=== PATIENT | female | born 1965 | race Hispanic/Latino ===

== ENCOUNTER 2018-04-04 11:32 | Emergency (ER) | payer BC, OTHER ==
[2018-04-04] MEDS ORDERED: NA CHLORIDE 0.9% 1,000 ML ONE (13:14)
[2018-04-04] MEDS ORDERED: ONDANSETRON 4 MG/2 ML VIAL ONE (13:14)
[2018-04-04 13:19] LABS: Absolute Lymphocytes (CBC) 2.7 K/uL (0.7-4.9); Absolute Monocytes 0.6 K/uL (0.1-1.3); Basophils % 0.5 % (0-1.3); Eosinophils % 2.1 % (0-4.4); Hematocrit 40.1 % (36.0-45.0); Lymphocytes % 36.2 % (15.3-44.8); MCH 28.1 pg (27.0-35.0); MCV 84.6 fL (80-100); Monocytes % 7.4 % (3.3-12.3); RBC Red Blood Cell Count 4.74 M/uL (3.86-4.86)
[2018-04-04 13:35] LABS: ALT/SGPT 20 U/L (12-78); AST/SGOT 13 U/L (15-37); Albumin 3.6 g/dL (3.4-5.0); Alkaline Phosphatase 87 U/L (45-117); BUN Blood Urea Nitrogen 12 mg/dL (7-18); Bicarbonate 30 mmol/L (21-32); Bilirubin Direct < 0.1 mg/dL (0-0.2); Bilirubin Total 0.3 mg/dL (0.2-1.0); Glucose Level 89 mg/dL (74-106); Lipase 141 U/L (73-393); Potassium 4.3 mmol/L (3.5-5.1); Protein, Total 7.3 g/dL (6.4-8.2); Sodium Level 140 mmol/L (136-145)
[2018-04-04 13:38] LABS: Urine Amorphous Sediment 1+ /HPF (NONE SEEN); Urine Bacteria 20-50 /HPF (<20); Urine Culture Reflex Order REFLEXED
[2018-04-04 13:39] LABS: Urine Trichomonas PRESENT (NONE SEEN)
[2018-04-04 14:19] LABS: Urine Blood NEGATIVE (NEG); Urine Glucose NEGATIVE (NEG); Urine Protein TRACE (NEG); Urine Specific Gravity 1.025 (1.005-1.030); Urine pH 6.5 (5.0-7.0)
--- NOTE | 2018-04-04 14:59 | RAD REPORT ---
EXAM DESCRIPTION: CT - Abdomen Pelvis W Contrast - 04/04/2018 2:34 pm CLINICAL HISTORY: Abdominal pain, diarrhea, prior cholecystectomy COMPARISON: CT December 2010. TECHNIQUE: Biphasic, helical CT imaging of the abdomen and pelvis was performed following 100 ml non -ionic IV contrast. Oral contrast was given. All CT scans are performed using dose optimization technique as appropriate and may include automated exposure control or mA/KV adjustment according to patient size. FINDINGS: No suspicious findings in the lung bases. The liver, spleen, and pancreas show no suspicious findings. Cholecystectomy clips are present. No bi liary tree dilatation. Back maximal Symmetric renal function is seen with no hydronephrosis or suspicious renal mass. No pyelonephritis o r acute renal parenchymal process. No adrenal abnormality. Urinary bladder is contracted limiting det ail. Bladder calculus is not seen. No uterine or ovarian suspicious finding. Fallopian tube occlusive device is in place Patient probably has a 2 centimeter right ovarian or paraovarian remnant cyst. Th is may be slightly larger than in 2011. No left ovarian finding. No gastric dilatation or gastric wall thickening. No acute small bowel finding. Appendix is normal. M ild left-sided diverticulosis present without mass, diverticulitis or other acute colon process. No free air, free fluid or inflammatory stranding. No hernia, mass or bulky lymphadenopathy. No suspicious bony findings. IMPRESSION: Left-sided diverticulosis without diverticulitis. No acute GI process identifiable. A 2 centimeter right ovarian cyst is evident probably enlarged slightly from 2011 imaging. Given the patient's age, followup nonemergent pelvic sonography could be performed to monitor this finding.
--- NOTE | 2018-04-04 15:29 | EDPHYS ---
Physician Documentation [facility] Name: Magui Cotton Age: 52 yrs Sex: Female : 1965 Arrival Date: 04/04/2018 Time: 11:41 Bed 13 Private MD: ED Physician Forest Almodovar HPI: 04/04 12:52 This 52 yrs old Female presents to ER via Wheelchair with complaints of rn Abdominal Pain. 12:52 The patient presents with abdominal pain in the lower abdomen. Onset: The rn symptoms/episode began/occurred yesterday. The symptoms do not radiate. Associated signs and symptoms: Pertinent positives: diarrhea, nausea, Pertinent negatives: blood in stools, fever. The symptoms are described as achy, crampy. Modifying factors: The symptoms are alleviated by nothing, the symptoms are aggravated by nothing. Severity of pain: At its worst the pain was moderate in the emergency department the pain has improved. The patient has not experienced similar symptoms in the past. The patient has not recently seen a physician. 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 - Social history:: Smoking status: Patient/guardian denies using tobacco. - Ebola Screening: : Patient negative for fever greater than or equal to 101.5 degrees Fahrenheit, and additional compatible Ebola Virus Disease symptoms Patient denies exposure to infectious person Patient denies travel to an Ebola-affected area in the 21 days before illness onset No symptoms or risks identified at this time. - Family history:: not pertinent. - Hospitalizations: : No recent hospitalization is reported. ROS: 12:52 Constitutional: Negative for fever, chills, and weight loss, Eyes: Negative for injury, rn pain, redness, and discharge, Neck: Negative for injury, pain, and swelling, Cardiovascular: Negative for chest pain, palpitations, and edema, Respiratory: Negative for shortness of breath, cough, wheezing, and pleuritic chest pain, Abdomen/GI: + lower abd pain, nausea, diarrhea MS/Extremity: Negative for injury and deformity, Skin: Negative for injury, rash, and discoloration, Neuro: Negative for headache, numbness, tingling, and seizure. Exam: 12:52 Constitutional: This is a well developed, well nourished patient who is awake, alert, rn slow walking to bed Head/Face: Normocephalic, atraumatic. ENT: dry MM Cardiovascular: Regular rate and rhythm with a normal S1 and S2. No gallops, murmurs, or rubs. Normal PMI, no JVD. No pulse deficits. Respiratory: Lungs have equal breath sounds bilaterally, clear to auscultation and percussion. No rales, rhonchi or wheezes noted. No increased work of breathing, no retractions or nasal flaring. Abdomen/GI: soft, mild mid abd tenderness, no rebound/masses MS/ Extremity: Pulses equal, no cyanosis. Neurovascular intact. Full, normal range of motion. Equal circumference. Neuro: Awake and alert, GCS 15, oriented to person, place, time, and situation. Cranial nerves II-XII grossly intact. Motor strength 5/5 in all extremities. Sensory grossly intact. Cerebellar exam normal. Normal gait. Vital Signs: 11:48 BP 114 / 65; Pulse 101; Resp 20; Temp 98.0; Pulse Ox 99% on R/A; Weight 108.41 kg; aj Height 5 ft. 4 in. (162.56 cm); 13:04 BP 122 / 85; Pulse 55; Resp 19; Pulse Ox 99% on R/A; Pain 8/10; rb1 14:00 BP 115 / 70; Pulse 53; Resp 20; Pulse Ox 98% on R/A; rb1 15:00 BP 119 / 68; Pulse 57; Resp 20; Pulse Ox 99% on R/A; rb1 11:48 Body Mass Index 41.02 (108.41 kg, 162.56 cm) aj MDM: 12:43 Patient medically screened. rn 15:26 Differential diagnosis: diverticulitis, gastritis, non-specific abd pain, urinary tract rn infection, enteritis, dehydration. Data reviewed: vital signs, nurses notes, lab test result(s), radiologic studies, CT scan, and as a result, I will discharge patient. Counseling: I had a detailed discussion with the patient and/or guardian regarding: the historical points, exam findings, and any diagnostic results supporting the discharge/admit diagnosis, lab results, radiology results, the need for outpatient follow up, to return to the emergency department if symptoms worsen or persist or if there are any questions or concerns that arise at home. Response to treatment: the patient's symptoms have markedly improved after treatment, and as a result, I will discharge patient. Special discussion: I discussed with the patient/guardian in detail that at this point there is no indication for admission to the hospital. It is understood, however, that if the symptoms persist or worsen the patient needs to return immediately for re-evaluation. Based on the history and exam findings, there is no indication for further emergent testing or inpatient evaluation. I discussed with the patient/guardian the need to see the OB Gyne specialist for further evaluation of the symptoms. I discussed with the patient/guardian the need to see the primary care provider for further evaluation of the symptoms. 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 04/04 12:52 Order name: Basic Metabolic Panel; Complete Time: 13:40 04/04 12:52 Order name: CBC with Diff; Complete Time: 13:40 04/04 12:52 Order name: Hepatic Function; Complete Time: 13:40 04/04 12:52 Order name: Lipase; Complete Time: 13:40 04/04 12:52 Order name: Urine Microscopic Only; Complete Time: 13:40 04/04 13:40 Order name: Urine Culture [facility] 04/04 12:52 Order name: IV Saline Lock; Complete Time: 13:20 04/04 12:52 Order name: Labs collected and sent; Complete Time: 13:20 04/04 12:52 Order name: Urine Dipstick-Ancillary (obtain specimen); Complete Time: 13:20 04/04 12:52 Order name: CT Abd/Pelvis - W/Contrast; Complete Time: 15:08 rn 04/04 14:10 Order name: Urine Dipstick--Ancillary (enter results); Complete Time: 15:08 bd Administered Medications: 13:12 Drug: NS 0.9% 1000 ml Route: IV; Rate: 1000 ml; Site: right antecubital; rb1 14:32 Follow up: IV Status: Completed infusion rb1 13:12 Drug: Zofran 4 mg Route: IVP; Site: right antecubital; rb1 13:30 Follow up: Response: No adverse reaction; Nausea is decreased rb1 Disposition: 04/04/18 15:29 Discharged to Home. Impression: Diarrhea, unspecified, Gastroenteritis, Urinary tract infection, site not specified, Dehydration, Trichomoniasis. - Condition is Stable. - Discharge Instructions: Dehydration, Adult, Trichomoniasis, Urinary Tract Infection, Adult, Viral Gastroenteritis, Adult. - Prescriptions for Zofran ODT 4 mg Oral tablet,disintegrating - place 1 tablet by TRANSLINGUAL route every 8-10 hours As needed; 20 tablet. Macrobid 100 mg Oral Capsule - take 1 capsule by ORAL route every 12 hours for 10 days; 20 capsule. - Medication Reconciliation Form, Thank You Letter, Antibiotic Education, Prescription Opioid Use, Work release form form. - Follow up: Private Physician; When: As needed; Reason: Recheck today's complaints, Re-evaluation by your physician. - Problem is new. - Symptoms have improved. Signatures: Dispatcher [employer] EDIvana Paul RN RN aj Nieto, Roman, MD MD rn Barber, Rebecca, RN RN rb1 Corrections: (The following items were deleted from the chart) 15:54 15:29 04/04/2018 15:29 Discharged to Home. Impression: Diarrhea, unspecified; rb1 Gastroenteritis; Urinary tract infection, site not specified; Dehydration; Trichomoniasis. Condition is Stable. Forms are Medication Reconciliation Form, Thank You Letter, Antibiotic Education, Prescription Opioid Use. Follow up: Private Physician; When: As needed; Reason: Recheck today's complaints, Re-evaluation by your physician. Problem is new. Symptoms have improved. rn
--- NOTE | 2018-04-04 15:29 | ER ---
Nurse's Notes [facility] Name: Magui Cotton Age: 52 yrs Sex: Female : 1965 Arrival Date: 04/04/2018 Time: 11:41 Bed 13 Private MD: Diagnosis: Diarrhea, unspecified;Gastroenteritis;Urinary tract infection, site not specified;Dehydration;Trichomoniasis Presentation: 04/04 11:47 Presenting complaint: Patient states: Diarrhea since yesterday. Transition of care: aj patient was not received from another setting of care. Onset of symptoms was April 03, 2018. Risk Assessment: Do you want to hurt yourself or someone else? Patient reports no desire to harm self or others. Initial Sepsis Screen: Does the patient meet any 2 criteria? No. Patient's initial sepsis screen is negative. Does the patient have a suspected source of infection? No. Patient's initial sepsis screen is negative. Care prior to arrival: None. 11:47 Method Of Arrival: Wheelchair 11:47 Acuity: THERESE 3 aj Triage Assessment: 11:48 General: Appears in no apparent distress. comfortable, Behavior is calm, cooperative, aj appropriate for age. Pain: Denies pain. Neuro: Level of Consciousness is awake, alert, obeys commands, Oriented to person, place, time, situation, Appropriate for age. Respiratory: Airway is patent Respiratory effort is even, unlabored, Respiratory pattern is regular, symmetrical. GI: Abdomen is non-distended, obese, Reports diarrhea. Derm: Skin is intact, is healthy with good turgor, Skin is pink, warm \\T\\ dry. normal. 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 - Social history:: Smoking status: Patient/guardian denies using tobacco. - Ebola Screening: : Patient negative for fever greater than or equal to 101.5 degrees Fahrenheit, and additional compatible Ebola Virus Disease symptoms Patient denies exposure to infectious person Patient denies travel to an Ebola-affected area in the 21 days before illness onset No symptoms or risks identified at this time. - Family history:: not pertinent. - Hospitalizations: : No recent hospitalization is reported. Screenin:50 Abuse screen: Denies threats or abuse. Nutritional screening: No deficits noted. rb1 Tuberculosis screening: No symptoms or risk factors identified. Fall Risk None identified. Assessment: 12:50 General: Appears uncomfortable, obese, Behavior is calm, cooperative, Pt. stated, "I rb1 didn't take my temperature, but I felt like I had a fever.". Pain: Complains of pain in suprapubic area, right lower quadrant and left lower quadrant Pain currently is 8 out of 10 on a pain scale. Pain began 1 day ago. Neuro: Level of Consciousness is awake, alert, obeys commands, Oriented to person, place, time, situation. Cardiovascular: Capillary refill < 3 seconds is brisk in bilateral fingers. Respiratory: Airway is patent Respiratory effort is even, unlabored, Respiratory pattern is regular, symmetrical. GI: Bowel sounds present X 4 quads. Abd is soft Abd is non tender Reports diarrhea. GI: Reports nausea. : No signs and/or symptoms were reported regarding the genitourinary system. Derm: Skin is dry, Skin is normal, Skin temperature is warm. 13:47 Reassessment: Patient appears in no apparent distress at this time. No changes from rb1 previously documented assessment. Family at bedside. 14:18 Reassessment: Pt. went to CT. rb1 15:15 Reassessment: Patient and/or family updated on plan of care and expected duration. Pain rb1 level reassessed. Patient is alert, oriented x 3, equal unlabored respirations, skin warm/dry/pink. Family at bedside. Vital Signs: 11:48 BP 114 / 65; Pulse 101; Resp 20; Temp 98.0; Pulse Ox 99% on R/A; Weight 108.41 kg; aj Height 5 ft. 4 in. (162.56 cm); 13:04 BP 122 / 85; Pulse 55; Resp 19; Pulse Ox 99% on R/A; Pain 8/10; rb1 14:00 BP 115 / 70; Pulse 53; Resp 20; Pulse Ox 98% on R/A; rb1 15:00 BP 119 / 68; Pulse 57; Resp 20; Pulse Ox 99% on R/A; rb1 11:48 Body Mass Index 41.02 (108.41 kg, 162.56 cm) aj ED Course: 11:41 Patient arrived in ED. [id number] 11:48 Triage completed. 11:48 Arm band placed on right wrist. Patient placed in waiting room, Patient notified of wait time. 12:42 Elizabeth Davies, RN is Primary Nurse. rb1 12:43 Forest Almodovar MD is Attending Physician. rn 12:50 Patient has correct armband on for positive identification. Bed in low position. Call rb1 light in reach. Side rails up X 1. Pulse ox on. NIBP on. Warm blanket given. 13:05 Inserted saline lock: 22 gauge in right antecubital area, using aseptic technique. rb1 Blood collected. 14:32 CT completed. Patient tolerated procedure well. Patient moved to CT via wheelchair. Patient moved back from CT. Patient moved back from radiology. 14:34 CT Abd/Pelvis - W/Contrast In Process Unspecified. EDMS 15:53 No provider procedures requiring assistance completed. IV discontinued, intact, rb1 bleeding controlled, No redness/swelling at site. Pressure dressing applied. Administered Medications: 13:12 Drug: NS 0.9% 1000 ml Route: IV; Rate: 1000 ml; Site: right antecubital; rb1 14:32 Follow up: IV Status: Completed infusion rb1 13:12 Drug: Zofran 4 mg Route: IVP; Site: right antecubital; rb1 13:30 Follow up: Response: No adverse reaction; Nausea is decreased rb1 Outcome: 15:29 Discharge ordered by MD. rn 15:53 Discharged to home ambulatory, with family. rb1 15:53 Condition: stable 15:53 Discharge instructions given to patient, Instructed on discharge instructions, follow up and referral plans. medication usage, Demonstrated understanding of instructions, follow-up care, medications, Prescriptions given X 3. 15:54 Patient left the ED. rb1 Signatures: Dispatcher [employer] EDMS Ivana Lion RN RN aj Nieto, Roman, MD MD rn Warren, Shannon Elizabeth Davies, Maximino Mccollum RN jb7
[2018-04-04 16:05] VITALS: TEMP 98
[2018-04-04 16:09] VITALS: BP 119/68; O2SAT 99
== END 2018-04-04 15:54 | disposition home or self-care (01) ==
LOC: ER 11:32
DX: K52.9 Noninfective gastroenteritis and colitis, unspecified (principal); N39.0 Urinary tract infection, site not specified; E86.0 Dehydration; A59.9 Trichomoniasis, unspecified; Z88.8 Allergy status to other drugs, medicaments and biological substances
CPT/HCPCS: 36415; 74177; 80048; 80076; 81003; 81015; 83690; 85025; 87077; 87086; 87088; 87186; 96361; 96374; 99284; J2405; J7030; Q9967

== ENCOUNTER 2018-08-27 15:16 | Emergency (ER) | payer BC ==
--- OUTSIDE RECORDS SUMMARY | 2018-08-27 15:19 | XMS REPORT ---
:1965 Author Organization [employer] Care Team Providers Name Role Phone Dedra Amaro Provider Role Unavailable Allergies, Adverse Reactions, Alerts Substance Reaction Event Type Metronidazole SOB, redness, neck swelling,; this was 10-11 years ago Drug Allergy mustard Lips swell, SOB, and redness Non Drug Allergy Problems Problem Type Condition Code Onset Dates Condition Status Assessment Nausea R11.0 Active Assessment Urinary tract infection without N39.0 Active hematuria, site unspecified Assessment Abdominal pain, unspecified abdominal R10.9 Active location Assessment Elevated BP without diagnosis of R03.0 Active hypertension Assessment Screening for STD (sexually Z11.3 Active transmitted disease) Assessment Follow-up exam Z09 Active Problem Trichomonas infection A59.9 Active Problem Urinary tract infection without N39.0 Active hematuria, site unspecified Problem Nausea R11.0 Active Assessment Trichomonas infection A59.9 Active Problem Elevated BP without diagnosis of R03.0 Active hypertension Problem Abdominal pain, unspecified abdominal R10.9 Active location Medications Medication Code Code Instructions Start End Status Dosage System Date Date Nitrofurantoin [facility] [id number] 100 MG Orally Active 1 capsule Monohyd Macro every 12 hrs with food Ondansetron ND [id number] 4 MG Orally Active 1 tablet every 4 hrs on the tongue and allow to dissolve as needed Results No Known Results Summary Purpose eClinicalWorks Submission
--- OUTSIDE RECORDS SUMMARY | 2018-08-27 15:19 | XMS REPORT ---
:1965 Author Organization [employer] Care Team Providers Name Role Phone Dedra Amaro Provider Role Unavailable Allergies No Known Allergies Problems Problem Type Condition Code Onset Dates Condition Status Problem Trichomonas infection A59.9 Active Problem Urinary tract infection without N39.0 Active hematuria, site unspecified Problem Nausea R11.0 Active Problem Elevated BP without diagnosis of R03.0 Active hypertension Problem Abdominal pain, unspecified abdominal R10.9 Active location Medications No Known Medications Results No Known Results Summary Purpose [employer] Submission
[2018-08-27] MEDS ORDERED: KETOROLAC 30 MG/ML INJ ONE (15:59)
--- NOTE | 2018-08-27 16:40 | RAD REPORT ---
EXAM DESCRIPTION: CT - Stone Protocol - 08/27/2018 4:00 pm CLINICAL HISTORY: Left-sided back pain, left-sided flank pain, prior cholecystectomy COMPARISON: CT imaging March 2018 TECHNIQUE: Axial 5 mm thick images were obtained without oral or IV contrast. The [id number] span s the entirety of the system including uppermost abdomen and lung bases. All CT scans are performed using dose optimization technique as appropriate and may include automated exposure control or mA/KV adjustment according to patient size.Is FINDINGS: No hydronephrosis is present and no obstructing ureteral calculi. No suspicious renal mass es. Isodense masses and pyelonephritis are not excluded on a stone protocol CT scan. No urinary bladd er suspicious finding. No significant adrenal finding. No uterus or ovarian acute finding. Fallopian tube occlusive devices are in place. Imaged portions of the liver, spleen and pancreas show no suspicious findings on non-contrast imaging . Cholecystectomy clips are present. No biliary tree dilatation. No suspicious bowel findings. Left-sided diverticulosis is present without diverticulitis, mass or ot her acute process. No hernia, mass or bulky lymphadenopathy noted. No free air, free fluid or inflammatory stranding. No significant bony abnormality. IMPRESSION: Noncontrast CT abdomen and pelvis shows no significant or suspicious finding. No suspicious change from prior imaging. Isodense masses and pyelonephritis are not excluded on stone protocol technique.
[2018-08-27 16:52] LABS: Urine Blood NEGATIVE (NEG); Urine Glucose NEGATIVE (NEG); Urine Protein NEGATIVE (NEG); Urine Specific Gravity 1.015 (1.005-1.030)
[2018-08-27 16:52] LABS: Urine Bacteria >50 /HPF (<20); Urine Culture Reflex Order REFLEXED; Urine RBC <5 /HPF (NONE SEEN)
[2018-08-27] MEDS ORDERED: CEFTRIAXONE/SWI 1gm 2 GM/20 ML SYR ONE (16:53)
[2018-08-27 16:59] LABS: Absolute Lymphocytes (CBC) 3.5 K/uL (0.7-4.9); Absolute Monocytes 0.7 K/uL (0.1-1.3); Absolute Neutrophil 5.2 K/uL (1.8-8.0); Basophils % 0.5 % (0-1.3); Eosinophils % 1.2 % (0-4.4); Hematocrit 40.5 % (36.0-45.0); Lymphocytes % 36.2 % (15.3-44.8); MCH 27.9 pg (27.0-35.0); MCV 83.1 fL (80-100); MPV 8.7 fL (7.6-11.3); Monocytes % 7.4 % (3.3-12.3); RBC Red Blood Cell Count 4.88 M/uL (3.86-4.86)
[2018-08-27 17:02] LABS: ALT/SGPT 23 U/L (12-78); AST/SGOT 15 U/L (15-37); Albumin 3.7 g/dL (3.4-5.0); Alkaline Phosphatase 95 U/L (45-117); BUN Blood Urea Nitrogen 13 mg/dL (7-18); Bicarbonate 27 mmol/L (21-32); Bilirubin Direct < 0.1 mg/dL (0-0.2); Bilirubin Total 0.2 mg/dL (0.2-1.0); Glucose Level 79 mg/dL (74-106); Lipase 160 U/L (73-393); Protein, Total 7.7 g/dL (6.4-8.2); Sodium Level 139 mmol/L (136-145)
--- NOTE | 2018-08-27 17:16 | EDPHYS ---
Physician Documentation [facility] Name: Magui Cotton Age: 53 yrs Sex: Female : 1965 Arrival Date: 08/27/2018 Time: 15:18 Bed 18 Private MD: ED Physician Brendan Bhatt HPI: 08/27 15:43 This 53 yrs old Female presents to ER via Ambulatory with complaints of Low cp Back Pain. 15:43 The patient presents with pain that is acute, with no known mechanism of injury, and cp tenderness. The symptoms are located in the left low back and left mid back. The pain radiates to the left buttock. Onset: The symptoms/episode began/occurred 4 day(s) ago. 15:43 Associated signs and symptoms: Pertinent negatives: chest pain, constipation, dysuria, cp fever, incontinence, numbness, tingling, urinary retention, vomiting, weakness. 15:43 The problem was sustained from unknown cause. Severity of symptoms: in the emergency cp department the symptoms are unchanged, despite home interventions. 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 - Social history:: Smoking status: Patient/guardian denies using tobacco. - Ebola Screening: : Patient negative for fever greater than or equal to 101.5 degrees Fahrenheit, and additional compatible Ebola Virus Disease symptoms Patient denies exposure to infectious person Patient denies travel to an Ebola-affected area in the 21 days before illness onset No symptoms or risks identified at this time. ROS: 15:50 Constitutional: Negative for body aches, chills, fever, poor PO intake. cp 15:50 Eyes: Negative for injury, pain, redness, and discharge. cp 15:50 ENT: Negative for drainage from ear(s), ear pain, sore throat, difficulty swallowing, difficulty handling secretions. 15:50 Cardiovascular: Negative for chest pain, edema, palpitations. 15:50 Respiratory: Negative for cough, shortness of breath, wheezing. 15:50 Abdomen/GI: Negative for vomiting, diarrhea, constipation, anorexia, black/tarry stool, rectal pain, rectal bleeding, bowel incontinence. 15:50 Back: Positive for pain at rest, pain with movement, of the left low back. 15:50 : Negative for urinary symptoms, bladder incontinence, vaginal bleeding, vaginal discharge. 15:50 MS/extremity: Positive for pain, of the left leg, Negative for injury or acute deformity, decreased range of motion, paresthesias. 15:50 Skin: Negative for cellulitis, rash. 15:50 Neuro: Negative for altered mental status, dizziness, headache, weakness. 15:50 All other systems are negative. Exam: 15:55 Constitutional: The patient appears in no acute distress, alert, awake, cp non-diaphoretic, non-toxic, well developed, well nourished, obese. 15:55 Head/Face: Normocephalic, atraumatic. cp 15:55 Eyes: Periorbital structures: appear normal, Conjunctiva: normal, no exudate, no injection, Sclera: no appreciated abnormality, Lids and lashes: appear normal, bilaterally. 15:55 ENT: External ear(s): are unremarkable, Nose: is normal, Mouth: Lips: moist, Oral mucosa: pink and intact, moist, Posterior pharynx: is normal, airway is patent, no erythema, no exudate. 15:55 Neck: ROM/movement: is normal, is supple, without pain, no range of motions limitations, no nuchal rigidity. 15:55 Chest/axilla: Inspection: normal. 15:55 Cardiovascular: Rate: normal, Rhythm: regular, Edema: is not appreciated. 15:55 Respiratory: the patient does not display signs of respiratory distress, Respirations: normal, no use of accessory muscles, no retractions, no splinting, no tachypnea, Breath sounds: are clear throughout, no decreased breath sounds, no stridor, no wheezing. 15:55 Abdomen/GI: Inspection: obese Bowel sounds: active, all quadrants, Palpation: soft, in all quadrants, mild abdominal tenderness, in the left lower quadrant, rebound tenderness, is not appreciated, voluntary guarding, is not appreciated, involuntary guarding, is not appreciated. 15:55 Back: pain, that is moderate, of the left low back, ROM is painful, CVA tenderness, that is mild, is noted on the left, Straight leg raises: of both lower extremities does not illicit pain. 15:55 Skin: cellulitis, is not appreciated, no rash present. 15:55 Neuro: Orientation: to person, place \T\ time. Mentation: is normal, Motor: moves all fours, strength is normal, Sensation: is normal, Gait: is steady, Deep tendon reflexes are 2+ (normal) in the right patellar, right Achilles, left patellar and left Achilles. Vital Signs: 15:28 BP 120 / 86; Pulse 74; Resp 16 S; Temp 98.2; Pulse Ox 98% on R/A; Weight 108.86 kg; iw Height 5 ft. 3 in. (160.02 cm); Pain 9/10; 16:28 BP 110 / 71; Pulse 68; Resp 18; Pulse Ox 99% on R/A; Pain 7/10; em 17:35 BP 108 / 63; Pulse 67; Resp 16; Pulse Ox 99% on R/A; Pain 4/10; em 15:28 Body Mass Index 42.51 (108.86 kg, 160.02 cm) iw MDM: 15:23 Patient medically screened. cp 16:00 Differential diagnosis: strain, sciatica, Herniated disc UTI, pyelonephritis, kidney cp stone. 17:15 Data reviewed: vital signs, nurses notes, lab test result(s), radiologic studies, CT cp scan. 17:15 Counseling: I had a detailed discussion with the patient and/or guardian regarding: the cp historical points, exam findings, and any diagnostic results supporting the discharge/admit diagnosis, lab results, radiology results, the need for outpatient follow up, a family practitioner, to return to the emergency department if symptoms worsen or persist or if there are any questions or concerns that arise at home. Response to treatment: the patient's symptoms have markedly improved after treatment, and as a result, I will discharge patient. ED course: VSS. Pain improved with meds. Will discharge to home for continued monitoring. 08/27 15:41 Order name: Basic Metabolic Panel cp 08/27 15:41 Order name: CBC with Diff cp 08/27 15:41 Order name: Creatinine for Radiology cp 08/27 15:41 Order name: Hepatic Function cp 08/27 15:41 Order name: Lipase cp 08/27 15:41 Order name: Urine Microscopic Only cp 08/27 16:25 Order name: Urine Dipstick--Ancillary (enter results) eb 08/27 16:52 Order name: Urine Microscopic Only; Complete Time: 17:13 EDMS 08/27 17:13 Interpretation: Normal except: UWBC 5-10; UBACT >50; SQEPI 10-20. cp 08/27 16:53 Order name: Urine Dipstick-Ancillary; Complete Time: 17:13 EDMS 08/27 17:13 Interpretation: Normal except: UESTR TRACE. cp 08/27 16:58 Order name: Creatinine (Radiology Only); Complete Time: 17:13 EDMS 08/27 17:02 Order name: CBC with Automated Diff; Complete Time: 17:13 EDMS 08/27 17:02 Order name: Basic Metabolic Panel; Complete Time: 17:13 EDMS 08/27 17:14 Interpretation: Normal except: CL 108; GFR 88. 08/27 17:02 Order name: Liver (Hepatic) Function; Complete Time: 17:13 EDMS 08/27 17:02 Order name: Lipase; Complete Time: 17:13 EDMS 08/27 15:41 Order name: IV Saline Lock; Complete Time: 16:21 08/27 15:41 Order name: Labs collected and sent; Complete Time: 16:20 08/27 15:41 Order name: Urine Dipstick-Ancillary (obtain specimen); Complete Time: 16:20 08/27 15:42 Order name: CT Stone Protocol 08/27 16:41 Order name: CT; Complete Time: 16:46 EDMS 08/27 16:47 Interpretation: Report reviewed. cp Administered Medications: 16:15 Drug: TORadol 30 mg Route: IVP; Site: left antecubital; iw 16:28 Follow up: Response: No adverse reaction; Pain is decreased em 17:10 Drug: Rocephin - (cefTRIAXone) 2 grams Route: IVPB; Infused Over: 30 mins; Site: right iw antecubital; 17:34 Follow up: Response: No adverse reaction; IV Status: Completed infusion; IV Intake: 20mlem Disposition: 18:50 Co-signature as Attending Physician, Brendan Bhatt MD. Disposition: 08/27/18 17:15 Discharged to Home. Impression: Low back pain, Urinary tract infection, site not specified. - Condition is Stable. - Discharge Instructions: Back Pain, Adult, Urinary Tract Infection, Adult, Back Exercises, [id number]. - Prescriptions for Anaprox DS 550 mg Oral Tablet - take 1 tablet by ORAL route every 12 hours As needed; 20 tablet. Tylenol- Codeine #3 300-30 mg Oral Tablet - take 2 tablets by ORAL route every 6 hours As needed; 15 tablet. Cyclobenzaprine 10 mg Oral Tablet - take 1 tablet by ORAL route every 8 hours As needed; 20 tablet. Bactrim DS 800- 160 mg Oral Tablet - take 1 tablet by ORAL route every 12 hours for 7 days; 14 tablet. - Medication Reconciliation Form, Thank You Letter, Antibiotic Education, Prescription Opioid Use form. - Follow up: Private Physician; When: 2 - 3 days; Reason: Recheck today's complaints. - Problem is new. - Symptoms have improved. 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 [facility] 17:38 17:15 08/27/2018 17:15 Discharged to Home. Impression: Low back pain; Urinary tract em infection, site not specified. Condition is Stable. Forms are Medication Reconciliation Form, Thank You Letter, Antibiotic Education, Prescription Opioid Use. Follow up: Private Physician; When: 2 - 3 days; Reason: Recheck today's complaints. Problem is new. Symptoms have improved. cp
--- NOTE | 2018-08-27 17:16 | ER ---
Nurse's Notes [facility] Name: Magui Cotton Age: 53 yrs Sex: Female : 1965 Arrival Date: 08/27/2018 Time: 15:18 Bed 18 Private MD: Diagnosis: Low back pain;Urinary tract infection, site not specified Presentation: 08/27 15:27 Presenting complaint: Patient states: left low back pain X 4 days, worse today, denies iw injury, denies urinary s/s. Transition of care: patient was not received from another setting of care. Onset of symptoms was August 23, 2018. Risk Assessment: Do you want to hurt yourself or someone else? Patient reports no desire to harm self or others. Initial Sepsis Screen: Does the patient meet any 2 criteria? No. Patient's initial sepsis screen is negative. Does the patient have a suspected source of infection? No. Patient's initial sepsis screen is negative. Care prior to arrival: None. 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 - Social history:: Smoking status: Patient/guardian denies using tobacco. - Ebola Screening: : Patient negative for fever greater than or equal to 101.5 degrees Fahrenheit, and additional compatible Ebola Virus Disease symptoms Patient denies exposure to infectious person Patient denies travel to an Ebola-affected area in the 21 days before illness onset No symptoms or risks identified at this time. Screenin:50 Abuse screen: Denies threats or abuse. Nutritional screening: No deficits noted. em Tuberculosis screening: No symptoms or risk factors identified. Fall Risk None identified. Assessment: 15:50 General: Appears in no apparent distress. uncomfortable, Behavior is calm, cooperative, em Denies fever. Pain: Complains of pain in left lower back and right lower back Pain currently is 9 out of 10 on a pain scale. Neuro: Level of Consciousness is awake, alert, obeys commands, Oriented to person, place, time, situation, Gait is steady. Cardiovascular: Capillary refill < 3 seconds Patient's skin is warm and dry. Respiratory: Airway is patent Respiratory effort is even, unlabored, Respiratory pattern is regular, symmetrical. GI: Abdomen is obese, Patient currently denies nausea, vomiting. : Urine is cloudy, Denies burning with urination, inability to void, pain. EENT: No signs and/or symptoms were reported regarding the EENT system. Derm: Skin is intact, is healthy with good turgor, Skin is pink, warm \T\ dry. Musculoskeletal: Range of motion: intact in all extremities. 16:00 Reassessment: Patient appears in no apparent distress at this time. I agree with above iw assessment by Tello Josue LVN. 16:28 Reassessment: Patient appears in no apparent distress at this time. Patient and/or em family updated on plan of care and expected duration. Pain level reassessed. Patient is alert, oriented x 3, equal unlabored respirations, skin warm/dry/pink. pt states medication is helping Patient states feeling better. 17:34 Reassessment: Patient appears in no apparent distress at this time. Patient and/or em family updated on plan of care and expected duration. Pain level reassessed. Patient is alert, oriented x 3, equal unlabored respirations, skin warm/dry/pink. rates pain 4/10 Patient states feeling better. Vital Signs: 15:28 BP 120 / 86; Pulse 74; Resp 16 S; Temp 98.2; Pulse Ox 98% on R/A; Weight 108.86 kg; iw Height 5 ft. 3 in. (160.02 cm); Pain 9/10; 16:28 BP 110 / 71; Pulse 68; Resp 18; Pulse Ox 99% on R/A; Pain 7/10; em 17:35 BP 108 / 63; Pulse 67; Resp 16; Pulse Ox 99% on R/A; Pain 4/10; em 15:28 Body Mass Index 42.51 (108.86 kg, 160.02 cm) iw ED Course: 15:18 Patient arrived in ED. as 15:22 Jese Sarabia PA is PHCP. cp 15:22 Brendan Bhatt MD is Attending Physician. cp 15:28 Triage completed. iw 15:28 Arm band placed on. iw 15:43 Tello Josue LVN is Primary Nurse. em 15:50 Patient has correct armband on for positive identification. Placed in gown. Bed in low em position. Call light in reach. Adult w/ patient. 15:56 CT completed. Patient moved back from CT. bq 16:10 Initial lab(s) drawn, by me, sent to lab. Inserted saline lock: 20 gauge in right em antecubital area, using aseptic technique. Blood collected. 17:35 No provider procedures requiring assistance completed. IV discontinued, intact, em bleeding controlled, No redness/swelling at site. Pressure dressing applied. Administered Medications: 16:15 Drug: TORadol 30 mg Route: IVP; Site: left antecubital; iw 16:28 Follow up: Response: No adverse reaction; Pain is decreased em 17:10 Drug: Rocephin - (cefTRIAXone) 2 grams Route: IVPB; Infused Over: 30 mins; Site: right iw antecubital; 17:34 Follow up: Response: No adverse reaction; IV Status: Completed infusion; IV Intake: 20mlem Intake: 17:34 IV: 20ml; Total: 20ml. em Outcome: 17:15 Discharge ordered by MD. cp 17:35 Discharged to home ambulatory, with family. em 17:35 Condition: good 17:35 Discharge instructions given to patient, family, Instructed on discharge instructions, follow up and referral plans. no drinking with medication, no driving heavy equipment, medication usage, Demonstrated understanding of instructions, follow-up care, medications, Prescriptions given X 4. 17:38 Patient left the ED. em Addendum: 08/31/2018 07:31 Addendum: Culture Results: Positive urine culture. No further action required. Bacteria h b sensitive to prescribed antibiotic. Signatures: Maureen Kearney bq Tello Josue LVN LVN em Annabelle Mckeon as Donna Browning RN RN iw Jese Sarabia PA PA cp Lyndsey Brunner RN RN Corrections: (The following items were deleted from the chart) 08/27 15:44 15:27 Acuity: THERESE 4 iw iw
[2018-08-27 17:59] VITALS: TEMP 98.2
[2018-08-27 18:01] VITALS: O2SAT 99
[2018-08-27 18:02] VITALS: BP 108/63
== END 2018-08-27 17:38 | disposition home or self-care (01) ==
LOC: ER 15:16
DX: N39.0 Urinary tract infection, site not specified (principal); Z88.8 Allergy status to other drugs, medicaments and biological substances
CPT/HCPCS: 36415; 74176; 76377; 80048; 80076; 81003; 81015; 83690; 85025; 87077; 87086; 87088; 87186; 96365; 96375; 99284; J0696

== ENCOUNTER 2019-02-11 14:11 | Emergency (ER) | payer BC ==
--- OUTSIDE RECORDS SUMMARY | 2019-02-11 14:13 | XMS REPORT ---
:1965 Author Organization e[employer] Care Team Providers Name Role Phone Dedra Amaro Provider Role Unavailable Allergies, Adverse Reactions, Alerts Substance Reaction Event Type Metronidazole SOB, redness, neck swelling,; this was 10-11 years ago Drug Allergy mustard Lips swell, SOB, and redness Non Drug Allergy Problems Problem Type Condition Code Onset Dates Condition Status Assessment Sore throat J02.9 Active Problem Trichomonas infection A59.9 Active Problem Urinary tract infection without N39.0 Active hematuria, site unspecified Problem Nausea R11.0 Active Assessment Left-sided face pain R51 Active Problem Elevated BP without diagnosis of R03.0 Active hypertension Problem Abdominal pain, unspecified abdominal R10.9 Active location Medications Medication Code Code Instructions Start End Status Dosage System Date Date Augmentin [facility] 86423181558 500-125 MG January 23February 02, Active 1 tablet Orally every 12 2019 2019 hrs Ondansetron ND 68431615433 4 MG Orally Active 1 tablet every 4 hrs on the tongue and allow to dissolve as needed Nitrofurantoin ND 80411215454 100 MG Orally Active 1 capsule Monohyd Macro every 12 hrs with food Results Name Result Date Reference Range Unit Abnormality Flag STREP A RAPID ----Result Negative [id number] Summary Purpose eClinicalWorks Submission
--- OUTSIDE RECORDS SUMMARY | 2019-02-11 14:13 | XMS REPORT ---
[...] End Status Dosage System Date Date Nitrofurantoin [facility] 77333335807 100 MG Orally Active 1 capsule Monohyd Macro every 12 hrs with food Ondansetron ND 40327769565 4 MG Orally Active 1 tablet every 4 hrs on the tongue and allow to dissolve as needed Results No Known Results Summary Purpose eClinicalWorks Submission
[2019-02-11] MEDS ORDERED: IBUPROFEN 400 MG TAB ONE (15:30)
[2019-02-11] MEDS ORDERED: HYDROCODONE/APAP 10/325 TAB ONE (15:30)
--- NOTE | 2019-02-11 16:39 | ER ---
Nurse's Notes [facility] Name: Magui Cotton Age: 53 yrs Sex: Female : 1965 Arrival Date: 02/11/2019 Time: 14:14 Bed 27 Private MD: Dedra Amaro Diagnosis: Hemorrhoids Presentation: 02/11 14:23 Presenting complaint: Patient states: MY HEMORRHOIDS ARE BLEEDING. Transition of care: bp patient was not received from another setting of care. Onset of symptoms is unknown. Risk Assessment: Do you want to hurt yourself or someone else? Patient reports no desire to harm self or others. Initial Sepsis Screen: Does the patient meet any 2 criteria? No. Patient's initial sepsis screen is negative. Does the patient have a suspected source of infection? No. Patient's initial sepsis screen is negative. Care prior to arrival: None. 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 - Social history:: Smoking status: Patient/guardian denies using tobacco. - Ebola Screening: : No symptoms or risks identified at this time. Screenin:49 Abuse screen: Denies threats or abuse. Nutritional screening: No deficits noted. tw2 Tuberculosis screening: No symptoms or risk factors identified. Fall Risk None identified. Assessment: 14:51 General: Appears in no apparent distress. uncomfortable, Behavior is calm, cooperative. rv Pain: Complains of pain in rectum. Neuro: Level of Consciousness is awake, alert, obeys commands, Oriented to person, place, time, situation. Cardiovascular: Patient's skin is warm and dry. Respiratory: Airway is patent. GI: Reports hemorrhoids. : No signs and/or symptoms were reported regarding the genitourinary system. EENT: No signs and/or symptoms were reported regarding the EENT system. Derm: Skin is intact. Musculoskeletal: No signs and/or symptoms reported regarding the musculoskeletal system. 16:30 Reassessment: Patient appears in no apparent distress at this time. Patient and/or rv family updated on plan of care and expected duration. Pain level reassessed. Patient is alert, oriented x 3, equal unlabored respirations, skin warm/dry/pink. Patient states feeling better. Patient states symptoms have improved. Vital Signs: 14:24 BP 113 / 63; Pulse 70; Resp 14; Temp 97.2; Pulse Ox 97% ; Weight 109.32 kg; Height 5 bp ft. 3 in. (160.02 cm); 16:04 BP 97 / 62; Pulse 57; Resp 15; Temp 97.9; Pulse Ox 96% ; rv 16:45 BP 95 / 53; Pulse 57; Resp 16; Temp 98.0; Pulse Ox 97% ; lt1 14:24 Body Mass Index 42.69 (109.32 kg, 160.02 cm) bp ED Course: 14:14 Patient arrived in ED. ag5 14:14 Dedra Amaro MD is Private Physician. ag5 14:24 Triage completed. bp 14:24 Arm band placed on. bp 14:49 Bed in low position. Call light in reach. tw2 14:51 Trevor Crowe RN is Primary Nurse. rv 15:02 Pankaj Arellano NP is PHCP. pm1 15:02 Jese Jay MD is Attending Physician. pm1 16:38 Dario Mckeon MD is Referral Physician. pm1 16:56 No provider procedures requiring assistance completed. Patient did not have IV access rv during this emergency room visit. Administered Medications: 15:20 Drug: [place] 10 mg-325 mg 1 tabs Route: PO; rv 16:04 Follow up: Response: Marked relief of symptoms; Pain is decreased rv 15:20 Drug: Ibuprofen 800 mg Route: PO; rv 16:04 Follow up: Response: Marked relief of symptoms; Pain is decreased rv Outcome: 16:38 Discharge ordered by MD. pm1 16:56 Discharged to home ambulatory. rv 16:56 Condition: improved 16:56 Discharge instructions given to patient, Instructed on discharge instructions, follow up and referral plans. medication usage, Demonstrated understanding of instructions, follow-up care, medications, Prescriptions given X 3. 17:06 Patient left the ED. rv Signatures: Pankaj Arellano NP DIAMOND WHEEL EDGER pm1 Shanna Hawk RN RN tw2 Timbo Red RN RN bp Trevor Crowe, RN RN rv Cindy, Leodan ag5 Evelyn Pino 1
--- NOTE | 2019-02-11 16:39 | EDPHYS ---
Physician Documentation [facility] Name: Magui Cotton Age: 53 yrs Sex: Female : 1965 Arrival Date: 02/11/2019 Time: 14:14 Bed 27 Private MD: Dedra Amaro ED Physician Jese Jay HPI: 02/11 15:33 This 53 yrs old Female presents to ER via Ambulatory with complaints of Rectal pm1 Bleeding, Hemorrhoids. 15:33 The patient presents to the emergency department with bleeding from the rectum/anus, pm1 pain in the rectal area, hemorrhoid. Onset: The symptoms/episode began/occurred 3 day(s) ago. Context: the patient has a known history of hemorrhoids. Modifying factors: The symptoms are alleviated by nothing, The symptoms are aggravated by bowel movement, sitting position. Associate signs and symptoms: Pertinent negatives: abdominal pain, constipation, diarrhea, fever. The patient has not experienced similar symptoms in the past. The patient has not recently seen a physician. 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 - Social history:: Smoking status: Patient/guardian denies using tobacco. - Ebola Screening: : No symptoms or risks identified at this time. ROS: 15:33 Constitutional: Negative for fever, chills, and weight loss, Eyes: Negative for injury, pm1 pain, redness, and discharge, ENT: Negative for injury, pain, and discharge, Neck: Negative for injury, pain, and swelling, Cardiovascular: Negative for chest pain, palpitations, and edema, Respiratory: Negative for shortness of breath, cough, wheezing, and pleuritic chest pain. 15:33 Back: Negative for injury and pain, : Negative for injury, bleeding, discharge, and swelling, MS/Extremity: Negative for injury and deformity, Skin: Negative for injury, rash, and discoloration, Neuro: Negative for headache, weakness, numbness, tingling, and seizure. 15:33 Abdomen/GI: Positive for rectal pain, rectal bleeding, Negative for abdominal pain, nausea and vomiting, hematemesis, black/tarry stool. Exam: 15:33 Constitutional: This is a well developed, well nourished patient who is awake, alert, pm1 and in no acute distress. Head/Face: Normocephalic, atraumatic. Eyes: Pupils equal round and reactive to light, extra-ocular motions intact. Lids and lashes normal. Conjunctiva and sclera are non-icteric and not injected. Cornea within normal limits. Periorbital areas with no swelling, redness, or edema. ENT: Nares patent. No nasal discharge, no septal abnormalities noted. Tympanic membranes are normal and external auditory canals are clear. Oropharynx with no redness, swelling, or masses, exudates, or evidence of obstruction, uvula midline. Mucous membranes moist. Neck: Trachea midline, no thyromegaly or masses palpated, and no cervical lymphadenopathy. Supple, full range of motion without nuchal rigidity, or vertebral point tenderness. No Meningismus. Chest/axilla: Normal chest wall appearance and motion. Nontender with no deformity. No lesions are appreciated. Cardiovascular: Regular rate and rhythm with a normal S1 and S2. No gallops, murmurs, or rubs. Normal PMI, no JVD. No pulse deficits. Respiratory: Lungs have equal breath sounds bilaterally, clear to auscultation and percussion. No rales, rhonchi or wheezes noted. No increased work of breathing, no retractions or nasal flaring. 15:33 Back: No spinal tenderness. No costovertebral tenderness. Full range of motion. Skin: Warm, dry with normal turgor. Normal color with no rashes, no lesions, and no evidence of cellulitis. MS/ Extremity: Pulses equal, no cyanosis. Neurovascular intact. Full, normal range of motion. 15:33 Abdomen/GI: Inspection: abdomen appears normal, Bowel sounds: normal, Palpation: abdomen is soft and non-tender, Rectal exam: hemorrhoid(s), external, with associated bleeding, with inflammation, with pain, without thrombosis, [facility] tech. 15:33 Neuro: Orientation: is normal, Motor: is normal, moves all fours, Sensation: is normal, no obvious gross deficits. Vital Signs: 14:24 BP 113 / 63; Pulse 70; Resp 14; Temp 97.2; Pulse Ox 97% ; Weight 109.32 kg; Height 5 bp ft. 3 in. (160.02 cm); 16:04 BP 97 / 62; Pulse 57; Resp 15; Temp 97.9; Pulse Ox 96% ; rv 16:45 BP 95 / 53; Pulse 57; Resp 16; Temp 98.0; Pulse Ox 97% ; lt1 14:24 Body Mass Index 42.69 (109.32 kg, 160.02 cm) bp MDM: 15:03 Patient medically screened. [facility] 15:33 Data reviewed: vital signs. Data interpreted: Pulse oximetry: on room air is 97 %. pm1 Interpretation: normal. 16:37 Counseling: I had a detailed discussion with the patient and/or guardian regarding: the pm1 historical points, exam findings, and any diagnostic results supporting the discharge/admit diagnosis, the need for outpatient follow up, to return to the emergency department if symptoms worsen or persist or if there are any questions or concerns that arise at home. Administered Medications: 15:20 Drug: [place] 10 mg-325 mg 1 tabs Route: PO; rv 16:04 Follow up: Response: Marked relief of symptoms; Pain is decreased rv 15:20 Drug: Ibuprofen 800 mg Route: PO; rv 16:04 Follow up: Response: Marked relief of symptoms; Pain is decreased rv Disposition: 02/12 07:51 Co-signature as Attending Physician, Jese Jay MD I agree with the assessment and [facility] plan of care. Disposition: 02/11/19 16:38 Discharged to Home. Impression: Hemorrhoids. - Condition is Stable. - Discharge Instructions: Hemorrhoids. - Prescriptions for Anusol- HC 2.5 % Rectal Cream - Apply to affected area 1 application by TOPICAL route every 8 hours As needed; 30 gram. Colace 100 mg Oral Tablet - take 1 tablet by ORAL route every 12 hours; 14 tablet. Tylenol- Codeine #3 300-30 mg Oral Tablet - take 2 tablets by ORAL route every 6 hours As needed; 20 tablet. - Medication Reconciliation Form, Thank You Letter, Antibiotic Education, Prescription Opioid Use form. - Follow up: Emergency Department; When: As needed; Reason: Worsening of condition. Follow up: Dario Mckeon MD; When: 2 - 3 days; Reason: Recheck today's complaints, Continuance of care, Re-evaluation by your physician. - Problem is new. - Symptoms have improved. Signatures: Jese Jay MD MD cha Marinas, Patrick, NP CARPENTER'S ASSISTANT pm1 Timbo Red, RN RN bp Trevor Crowe, RN RN rv Corrections: (The following items were deleted from the chart) 02/11 17:06 16:38 02/11/2019 16:38 Discharged to Home. Impression: Hemorrhoids. Condition is rv Stable. Forms are Medication Reconciliation Form, Thank You Letter, Antibiotic Education, Prescription Opioid Use. Follow up: Emergency Department; When: As needed; Reason: Worsening of condition. Follow up: Dario Mckeon; When: 2 - 3 days; Reason: Recheck today's complaints, Continuance of care, Re-evaluation by your physician. Problem is new. Symptoms have improved. pm1
[2019-02-11 17:30] VITALS: BP 95/53; TEMP 98; O2SAT 97
== END 2019-02-11 17:06 | disposition home or self-care (01) ==
LOC: ER 14:11
DX: K64.9 Unspecified hemorrhoids (principal)
CPT/HCPCS: 99283

== ENCOUNTER 2019-02-16 11:04 | Day surgery (SDC) | payer BC ==
[2019-02-16 09:59] LABS: Absolute Lymphocytes (CBC) 2.5 K/uL (0.7-4.9); Absolute Monocytes 0.4 K/uL (0.1-1.3); Absolute Neutrophil 5.4 K/uL (1.8-8.0); Basophils % 0.6 % (0-1.3); Eosinophils % 3.8 % (0-4.4); Hematocrit 41.9 % (36.0-45.0); Lymphocytes % 29.1 % (15.3-44.8); MPV 8.6 fL (7.6-11.3); RBC Red Blood Cell Count 4.98 M/uL (3.86-4.86)
--- NOTE | 2019-02-16 10:00 | RAD REPORT ---
EXAM DESCRIPTION: RAD - Chest Pa And Lat (2 Views) - 02/16/2019 9:51 am CLINICAL HISTORY: preop Chest pain. COMPARISON: CHEST SINGLE VIEW dated 10/25/2012; CHEST SINGLE VIEW dated 12/21/2011 FINDINGS: The lungs are clear. The heart is normal in size. No displaced fractures. IMPRESSION: No acute or concerning finding suspected.
[2019-02-16 10:16] LABS: BUN Blood Urea Nitrogen 13 mg/dL (7-18); Bicarbonate 29 mmol/L (21-32); Glucose Level 92 mg/dL (74-106); Potassium 4.6 mmol/L (3.5-5.1); Sodium Level 144 mmol/L (136-145)
--- OUTSIDE RECORDS SUMMARY | 2019-02-16 11:10 | XMS REPORT ---
[...] End Status Dosage System Date Date Augmentin [facility] [id number] 500-125 MG January 23February 02, Active 1 tablet Orally every 12 2019 2019 hrs Ondansetron ND 13532105494 4 MG Orally Active 1 tablet every 4 hrs on the tongue and allow to dissolve as needed Nitrofurantoin ND 88543755538 100 MG Orally Active 1 capsule Monohyd Macro every 12 hrs with food Results Name Result Date Reference Range Unit Abnormality Flag STREP A RAPID ----Result Negative [id number] Summary Purpose eClinicalWorks Submission
--- OUTSIDE RECORDS SUMMARY | 2019-02-16 11:10 | XMS REPORT ---
[...] Status Dosage System Date Date Nitrofurantoin [facility] [id number] 100 MG Orally Active 1 capsule Monohyd Macro every 12 hrs with food Ondansetron ND 59678265610 4 MG Orally Active 1 tablet every 4 hrs on the tongue and allow to dissolve as needed Results No Known Results Summary Purpose eClinicalWorks Submission
[2019-02-16] MEDS ORDERED: Ringers Lactate 1,000 ML IV ONE ×2 (11:33→14:46)
[2019-02-16] MEDS ORDERED: PROPOFOL 200 MG/20 ML VIAL IV ONE (12:29)
[2019-02-16] MEDS ORDERED: MIDAZOLAM HCL 2 MG/2 ML INJ ONE (12:29)
[2019-02-16] MEDS ORDERED: LIDOCAINE 2% MPF 5 ML VIAL ONE (12:30)
[2019-02-16] MEDS ORDERED: ONDANSETRON 4 MG/2 ML VIAL ONE ×2 (12:30→15:30)
[2019-02-16] MEDS ORDERED: FENTANYL CITR 100 MCG/2 ML ONE (12:30)
[2019-02-16] MEDS ORDERED: CEFAZOLIN/SWI 1gm 1 GM/10 ML SYR ONE (13:28)
--- NOTE | 2019-02-16 13:55 | P.BOP ---
Preoperative diagnosis: thrombosed prolapsed hemorrhoid Postoperative diagnosis: same Primary procedure: 1. EUA, 2. anoscopy, 3. rigid proctoscopy Secondary procedure: 4. external hemorhoidectomy Estimated blood loss: <5cc Specimen: hemorrhoid Findings: as above Anesthesia: General Complications: None Drain(s): Other Transferred to: Recovery Room Condition: Good
[2019-02-16] MEDS: HYDROMORPHONE HCL 1 MG/ML INJ ONE ×4 (14:33→14:50)
[2019-02-16 15:28] VITALS: TEMP 98.2
[2019-02-16] MEDS ORDERED: CODEINE 30MG/APAP 300MG TAB ONE (15:29)
[2019-02-16 16:03] VITALS: BP 128/66; O2SAT 98
--- NOTE | 2019-02-17 02:55 | OP ---
Date of Procedure: 02/16/2019 Surgeon: Dario Mckeon MD Preoperative Diagnosis: Thrombosed prolapsed hemorrhoids. Postoperative Diagnosis: Thrombosed prolapsed hemorrhoids. Procedures: 1.Examination under anesthesia. 2.Anoscopy. 3.Rigid proctoscopy. 4.External hemorrhoidectomy, 1 bundle. Specimen: Thrombosed hemorrhoid. Findings: The patient has a left posterolateral thrombosed prolapsed hemorrhoid. Anesthesia: General plus local. Indications: This is the case of a female who comes several hours ago to my office with a prolapsed, very tender, and thrombosed hemorrhoid. She has been trying in the past creams, changes in diet to control hemorrhoids, but this one she says " ." So the patient fully explained examination under anesthesia, anoscopy, rigid proctoscopy, possible hemorrhoidectomy with benefits, alternatives, and risks including, but not limited to infection, bleeding, damage to adjacent structures, anesthes ia complication, recurrence, [place], and even . She also understands this may not relieve the sympt oms. She might need more than one surgical intervention. 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 She signed a con sent. Description Of Procedure: The patient was brought to the operating room, placed in supine position. Anesthesia was done without complication. Then, the patient was placed in lateral position with pro per protection. Rectal examination was done followed by rigid proctoscopy all the way about 15 cm. No mass was seen except in the left posterolateral region, we see a prolapsed thrombosed hemorrhoid. We removed the rigid proctoscope and then put an anoscope with a window on the side checking the dorian canal. Once again, the same findings of that prolapsed hemorrhoid pointing as the one v desi tender. We proceeded to carefully open the anoderm under direct visualization. I the hemorrhoidal plexus from the sphincter, transected the hemorrhoidal plexus with a Harmonic Scalpel. An anoderm approximated with 3-0 chromic. The area was irrigated. Surgicel applied to the area. Ev aluation was done. No bleeding. Local anesthetic was applied over the area. The patient tolerated the procedure well. The patient was sent to recovery room in stable condition. Sponge counts and in strument counts were correct. MI/DIANE Voice ID: [id number] Report ID: [id number]
--- NOTE | 2019-02-17 03:16 | DS ---
Date of Discharge: 02/16/2019 Diagnosis: Thrombosed prolapsed hemorrhoid. Procedures: 1.EUA. 2.Anoscopy. 3.Rigid proctoscopy. 4.External hemorrhoidectomy. Disposition: Home. Activity: As tolerated. No heavy lifting. Followup: Follow up in my office in 1 week, call for appointment [phone]. Discharge Instructions: Keep the area dry for 24 hours, then may shower. Sitz baths 4 times a day a fter every bowel movement. Medications: Include Tylenol No. 3 q.4 hours p.r.n. pain, Cipro 500 p.o. q.12. MI/DIANE Voice ID: [id number] Report ID: [id number]
--- NOTE | 2019-02-17 09:05 | EKG ---
Test Date: 2019-02-16 Test Time: 09:41:08 Record Systems Analyst: FIFI MEASUREMENT RESULTS: Intervals: Rate: 59 UT: 182 QRSD: 100 QT: 434 QTc: 429 [place]: P: 14 UT: 182 QRS: 19 T: 29 INTERPRETIVE STATEMENTS: Sinus bradycardia Low voltage QRS Borderline ECG No previous ECG available for comparison Electronically Signed On 02-17-19 09:01:16 CDT by Derek Lerma
== END 2019-02-16 16:05 | disposition home or self-care (01) ==
LOC: OR 11:04
PROVIDERS: ATTEND Surgery
PROC: 0DJD8ZZ Inspection of Lower Intestinal Tract, Via Natural or Artificial Opening Endoscopic (ICD-10-PCS; 2019-02-16)
PROC: 06BY0ZC Excision of Hemorrhoidal Plexus, Open Approach (ICD-10-PCS; principal; 2019-02-16 12:30)
DX: K64.5 Perianal venous thrombosis (principal); K21.9 Gastro-esophageal reflux disease without esophagitis; Z87.891 Personal history of nicotine dependence
CPT/HCPCS: 36415; 71046; 80048; 85025; 88304; 93005; J0690; J1170; J2250; J2405; J2704; J3010

== ENCOUNTER 2019-05-31 00:14 | Emergency (ER) | payer BC ==
--- OUTSIDE RECORDS SUMMARY | 2019-05-31 00:17 | XMS REPORT ---
[...] End Status Dosage System Date Date Augmentin [facility] [id number] 500-125 MG January 23February 02, Active 1 tablet Orally every 12 2019 2019 hrs Ondansetron ND 76272938562 4 MG Orally Active 1 tablet every 4 hrs on the tongue and allow to dissolve as needed Nitrofurantoin ND 52454350702 100 MG Orally Active 1 capsule Monohyd Macro every 12 hrs with food Results Name Result Date Reference Range Unit Abnormality Flag STREP A RAPID ----Result Negative [id number] Summary Purpose eClinicalWorks Submission
--- OUTSIDE RECORDS SUMMARY | 2019-05-31 00:17 | XMS REPORT ---
[...] End Status Dosage System Date Date Nitrofurantoin [facility] 56034164747 100 MG Orally Active 1 capsule Monohyd Macro every 12 hrs with food Ondansetron ND 44067235020 4 MG Orally Active 1 tablet every 4 hrs on the tongue and allow to dissolve as needed Results No Known Results Summary Purpose eClinicalWorks Submission
[2019-05-31] MEDS ORDERED: SILVER SULFADIAZINE 1% 25 GM TOP ONE (00:51)
[2019-05-31] MEDS ORDERED: HYDROCODONE/APAP 7.5/325 MG TAB ONE (00:55)
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
[2019-05-31 05:20] VITALS: BP 103/67; TEMP 97.8; O2SAT 99
== END 2019-05-31 01:22 | disposition home or self-care (01) ==
LOC: ER 00:14
DX: T25.221A Burn of second degree of right foot, initial encounter (principal); T25.121A Burn of first degree of right foot, initial encounter; X10.2XXA Contact with fats and cooking oils, initial encounter; Y93.G3 Activity, cooking and baking; Y92.010 Kitchen of single-family (private) house as the place of occurrence of the external cause
CPT/HCPCS: 99283

== ENCOUNTER 2019-11-11 10:48 | Emergency (ER) | payer BC ==
--- OUTSIDE RECORDS SUMMARY | 2019-11-11 10:49 | XMS REPORT ---
[...] End Status Dosage System Date Date Nitrofurantoin [facility] 24928421689 100 MG Orally Active 1 capsule Monohyd Macro every 12 hrs with food Ondansetron ND 94787649956 4 MG Orally Active 1 tablet every 4 hrs on the tongue and allow to dissolve as needed Results No Known Results Summary Purpose eClinicalWorks Submission
--- OUTSIDE RECORDS SUMMARY | 2019-11-11 10:50 | XMS REPORT | Summary of Care ---
:1965 Author Organization [facility] Address [address] [place] [address] Care Team Providers Name Role Phone Flores Jones REMOTE SENSING SPECIALIST Primary Care Provider Reason for Visit Reason Comments Refill Request Encounter Details Date Type Department Care Team Description 10/03/2019 Refill [facility] Delicia Encinas, Refill Request [address] [place] [address] [address] [facility] [phone] [place] [address] Allergies Active Allergy Reactions Severity Noted Date Comments Metronidazole Hives 04/03/2009 Difficulty breathing Mustard Hives 04/03/2009 Breathing difficulty documented as of this encounter (statuses as of 10/04/2019) Medications Medication Sig Dispensed Refills Start Date End Date Status tinidazole 250 mg Take 8 tablets by 1 tablet 0 06/07/2018 Active tablet mouth daily with breakfast. Nitrofurantoin&Nit. Take 1 capsule by 20 capsule 0 09/27/2019 Active Macrocryst (MACROBID) mouth 2 (two) 100 mg times daily. capsuleIndications: Acute cystitis without hematuria documented as of this encounter (statuses as of 10/04/2019) Active Problems Problem Noted Date UTI (urinary tract infection) 09/27/2019 Well woman exam 09/24/2019 Menopausal state 09/24/2019 Morbid obesity 05/23/2018 BMI 45.0-49.9, adult 05/23/2018 History of tobacco abuse 04/28/2015 General counseling and advice for contraceptive management 04/28/2015 Overview: ICD10 Diagnosis Term Network Project Manager Utility H/O tubal ligation 04/28/2015 Overview: Essure procedure Dysfunctional uterine bleeding 01/25/2015 Metrorrhagia 01/09/2015 Generalized anxiety disorder 01/19/2013 documented as of this encounter (statuses as of 10/04/2019) Resolved Problems Problem Noted Date Resolved Date Overweight 01/19/2013 01/25/2015 Overview: ICD10 Diagnosis Term Network Project Manager Utility documented as of this encounter (statuses as of 10/04/2019) Social History Tobacco Use Types Packs/Day Years Used Date Former Smoker Cigarettes Quit: 09/24/2018 Smokeless Tobacco: Never Used Alcohol Use Drinks/Week oz/Week Comments Yes socially Sex Assigned at Date Recorded Not on file Job Start Date Occupation Industry Not on file Not on file Not on file Travel History Travel Start Travel End No recent travel history available. documented as of this encounter Last Filed Vital Signs Not on filedocumented in this encounter Plan of Treatment Date Type Specialty Care Team Description 10/12/2019 Office Visit Gastroenterology Dolores Sheikh, ACNP [address] [facility] [address] [place] [address] [phone] Health Maintenance Due Date Last Done Comments PAP SMEAR 01/07/2018 01/07/2015, 12/22/2010, 05/09/2008 DTaP,Tdap,and Td Vaccines 09/24/2020 Postponed from (1 - Tdap) 1977 (Alternative Guidelines) INFLUENZA VACCINE (#1) 2020 Postponed from 05/13/2019 (Refused) Zoster Recombinant Vaccine 09/24/2020 Postponed from (SHINGRIX) (1 of 2) 2016 (Insurance / Financial) Breast Cancer Screening 09/27/2020 09/27/2019, 07/18/2018, (MAMMOGRAM) 02/10/2015, Additional history exists COLONOSCOPY Discontinued PNEUMOCOCCAL 0-64 YEARS Aged Out No longer eligible COMBINED SERIES based on patient's age to complete this topic documented as of this encounter Results Not on filedocumented in this encounter Visit Diagnoses Diagnosis Acute cystitis without hematuria Acute cystitis documented in this encounter Insurance Payer Benefit Plan Subscriber ID Effective Dates Phone Address Type / Group BCBS [facility] [id number] 2014-[place] [phone] [address] PPO/POS [facility] [id number] [place] [address] documented as of this encounter Advance Directives Name Relationship Healthcare Agent Relationship Communication Vaibhav Rivera Spouse First alternate healthcare agent Eli Cotton Mother First alternate healthcare agent
--- OUTSIDE RECORDS SUMMARY | 2019-11-11 10:50 | XMS REPORT | Summary of Care ---
:[address] [facility] Address [address] [place] [address] Care Team Providers Name Role Phone Flores Jones Deloris POULTRY HANGER Primary Care Provider Reason for Visit Radiology Services (Routine) Status Reason Specialty Diagnoses / Referred By Referred To Procedures Contact Contact New Request Diagnostic Diagnoses Well woman exam [place], Radiology Procedures BI SCREENING TOMOSYNTHESIS BILATERAL BI SCREENING MAMMOGRAM BILATERAL Delicia C, [facility] [address] [place] [address] Encounter Details Date Type Department Care Team Description 09/27/2019 Hospital Encounter [facility] Akins[place], Delicia Arrived [facility] C, [facility] [address] [place] [address] [facility] [phone] [place], [place] [id number] Allergies Active Allergy Reactions Severity Noted Date Comments Metronidazole Hives 04/03/2009 Difficulty breathing Mustard Hives 04/03/2009 Breathing difficulty documented as of this encounter (statuses as of 09/28/2019) Medications Medication Sig Dispensed Refills Start Date End Date Status tinidazole 250 mg Take 8 tablets by 1 tablet 0 06/07/2018 Active tablet mouth daily with breakfast. documented as of this encounter (statuses as of 09/28/2019) Active Problems Problem Noted Date UTI (urinary tract infection) 09/27/2019 Well woman exam 09/24/2019 Menopausal state 09/24/2019 Morbid obesity 05/23/2018 BMI 45.0-49.9, adult 05/23/2018 History of tobacco abuse 04/28/2015 General counseling and advice for contraceptive management 04/28/2015 Overview: ICD10 Diagnosis Term Marketing Content Specialist Utility H/O tubal ligation 04/28/2015 Overview: Essure procedure Dysfunctional uterine bleeding 01/25/2015 Metrorrhagia 01/09/2015 Generalized anxiety disorder 01/19/2013 documented as of this encounter (statuses as of 09/28/2019) Resolved Problems Problem Noted Date Resolved Date Overweight 01/19/2013 01/25/2015 Overview: ICD10 Diagnosis Term Marketing Content Specialist Utility documented as of this encounter (statuses as of 09/28/2019) Social History Tobacco Use Types Packs/Day Years [...] Office Visit Gastroenterology Dolores Sheikh, ACNP [address] [facility] [address] [place] [address] [phone] Health Maintenance Due Date Last Done Comments PAP SMEAR 01/07/2018 01/07/2015, 12/22/2010, 05/09/2008 Breast Cancer Screening 07/18/2019 07/18/2018, (MAMMOGRAM) 02/10/2015, 03/08/2012 DTaP,Tdap,and Td Vaccines (1 09/24/2020 Postponed from - Tdap) 1977 (Alternative Guidelines) INFLUENZA VACCINE (#1) 2020 Postponed from 05/13/2019 (Refused) Zoster Recombinant Vaccine 09/24/2020 Postponed from (SHINGRIX) (1 of 2) 2016 (Insurance / Financial) COLONOSCOPY Discontinued PNEUMOCOCCAL 0-64 YEARS Aged Out No longer eligible based COMBINED SERIES on patient's age to complete this topic documented as of this encounter Procedures Procedure Name Priority Date/Time Associated Comments Diagnosis BI SCREENING Routine 09/27/2019 9:34 Well woman exam Results for this TOMOSYNTHESIS AM FINANCIAL ENGINEER procedure are in BILATERAL the results section. documented in this encounter Results BI SCREENING TOMOSYNTHESIS BILATERAL (09/27/2019 9:34 AM FINANCIAL ENGINEER) Specimen Narrative Performed At Examination: PACS BI SCREENING TOMOSYNTHESIS BILATERAL History: Patient is 54 year old and is seen for: Routine. Computer-aided detection (CAD) utilized. Comparisons: 07/18/2018 BI SCREENING TOMOSYNTHESIS BILATERAL, 02/10/2015 DIGITAL MAMMOGRAM, SCREENING, and 03/08/2012 DIGITAL MAMMOGRAM, SCREENING Findings: The breasts have scattered areas of fibroglandular density. Bilateral There are vascular calcifications seen in both breasts. Impression: No signs of malignancy. Recommendation: Annual mammographic follow-up - Bilateral BI-RADS Category: Both 2 - Benign Performing Organization Address City/State[facility] Phone Number PACS documented in this encounter Visit Diagnoses Diagnosis Well woman exam Routine general medical examination at a health care facility documented in this encounter Insurance Payer Benefit Plan Subscriber ID Effective Dates Phone Address Type / Group BCBS OF [facility] [id number] 2014-[place] [phone] [address] PPO/POS [place] t [id number] [place] [address] [phone] (Work) documented as of this encounter Advance Directives Name Relationship Healthcare Agent Relationship Communication Vaibhav Rivera Spouse First alternate healthcare agent Eli Cottno Mother First alternate healthcare agent
--- OUTSIDE RECORDS SUMMARY | 2019-11-11 10:50 | XMS REPORT | Summary of Care ---
:1965 Author Organization [facility] Address [address] [place] [address] Care Team Providers Name Role Phone Flores Jones Deloris FREEZER MACHINE OPERATOR Primary Care Provider Reason for Visit Reason Comments UTI Encounter Details Date Type Department Care Team Description 09/27/2019 Telephone [facility] [place]kins[place], Delicia C, UTI [address] [place] [address] [address] [facility] [phone] [place] [address] Allergies Active Allergy Reactions Severity Noted Date Comments Metronidazole Hives 04/03/2009 Difficulty breathing Mustard Hives 04/03/2009 Breathing difficulty documented as of this encounter (statuses as of 09/27/2019) Medications Medication Sig Dispensed Refills Start Date End Date Status tinidazole 250 mg Take 8 tablets by 1 tablet 0 06/07/2018 Active tablet mouth daily with breakfast. Nitrofurantoin&Nit. Take 1 capsule by 20 capsule 0 09/27/2019 Active Macrocryst (MACROBID) mouth 2 (two) 100 mg times daily. capsuleIndications: Acute cystitis without hematuria documented as of this encounter (statuses as of 09/27/2019) Active Problems Problem Noted Date UTI (urinary tract infection) 09/27/2019 Well woman exam 09/24/2019 Menopausal state 09/24/2019 Morbid obesity 05/23/2018 BMI 45.0-49.9, adult 05/23/2018 History of tobacco abuse 04/28/2015 General counseling and advice for contraceptive management 04/28/2015 Overview: ICD10 Diagnosis Term Wellness Instructor Utility H/O tubal ligation 04/28/2015 Overview: Essure procedure Dysfunctional uterine bleeding 01/25/2015 Metrorrhagia 01/09/2015 Generalized anxiety disorder 01/19/2013 documented as of this encounter (statuses as of 09/27/2019) Resolved Problems Problem Noted Date Resolved Date Overweight 01/19/2013 01/25/2015 Overview: ICD10 Diagnosis Term Wellness Instructor Utility documented as of this encounter (statuses as of 09/27/2019) Social History Tobacco Use Types Packs/Day Years [...] Office Visit Gastroenterology Dolores Sheikh, ACNP [address] [facility] [address] [place] [address] [phone] Health Maintenance Due Date Last Done Comments [...] Visit Diagnoses Diagnosis Acute cystitis without hematuria - Primary Acute cystitis documented in this encounter Insurance Payer Benefit Plan Subscriber ID Effective Dates Phone Address Type / Group BCBS OF [facility] [id number] 2014-[place] [phone] [address] PPO/POS [facility] [id number] [place] [address] documented as of this encounter Advance Directives Name Relationship Healthcare Agent Relationship Communication Vaibhav Rivera Spouse First alternate healthcare agent Eli Cotton Mother First alternate healthcare agent
--- OUTSIDE RECORDS SUMMARY | 2019-11-11 10:50 | XMS REPORT ---
[...] End Status Dosage System Date Date Augmentin [facility] [id number] 500-125 MG January 23February 02, Active 1 tablet Orally every 12 2019 2019 hrs Ondansetron ND [id number] 4 MG Orally Active 1 tablet every 4 hrs on the tongue and allow to dissolve as needed Nitrofurantoin ND [id number] 100 MG Orally Active 1 capsule Monohyd Macro every 12 hrs with food Results Name Result Date Reference Range Unit Abnormality Flag STREP A RAPID ----Result Negative [id number] Summary Purpose eClinicalWorks Submission
--- OUTSIDE RECORDS SUMMARY | 2019-11-11 10:50 | XMS REPORT ---
:1965 [facility] Address [address] [place] [address] Dr. Reece [address] [place] [address] Care Team Providers Name Role Phone Unavailable Unavailable Unavailable Problems This patient has no known problems. Allergies, Adverse Reactions, Alerts This patient has no known allergies or adverse reactions. Medications This patient has no known medications.
--- OUTSIDE RECORDS SUMMARY | 2019-11-11 10:50 | XMS REPORT | Summary of Care ---
:1965 Author Organization [facility] Address [address] [place] [address] Care Team Providers Name Role Phone Flores Jones Deloris STATION CAPTAIN Primary Care Provider Reason for Visit Reason Comments LAB Encounter Details Date Type Department Care Team Description 09/25/2019 Telephone [facility] Delicia Encinas, LAB [address] [place] [address] [address] [facility] [phone] [place] [address] Allergies Active Allergy Reactions Severity Noted Date Comments Metronidazole Hives 04/03/2009 Difficulty breathing Mustard Hives 04/03/2009 Breathing difficulty documented as of this encounter (statuses as of 09/25/2019) Medications Medication Sig Dispensed Refills Start Date End Date Status tinidazole 250 mg Take 8 tablets by 1 tablet 0 06/07/2018 Active tablet mouth daily with breakfast. documented as of this encounter (statuses as of 09/25/2019) Active Problems Problem Noted Date Well woman exam 09/24/2019 Menopausal state 09/24/2019 Morbid obesity 05/23/2018 BMI 45.0-49.9, adult 05/23/2018 History of tobacco abuse 04/28/2015 General counseling and advice for contraceptive management 04/28/2015 Overview: ICD10 Diagnosis Term Environmental Services Assistant Utility H/O tubal ligation 04/28/2015 Overview: Essure procedure Dysfunctional uterine bleeding 01/25/2015 Metrorrhagia 01/09/2015 Generalized anxiety disorder 01/19/2013 documented as of this encounter (statuses as of 09/25/2019) Resolved Problems Problem Noted Date Resolved Date Overweight 01/19/2013 01/25/2015 Overview: ICD10 Diagnosis Term Environmental Services Assistant Utility documented as of this encounter (statuses as of 09/25/2019) Social History Tobacco Use Types Packs/Day Years [...] Treatment Date Type Specialty Care Team Description 09/27/2019 Appointment [facility] Encinas[facility] [address] [place] [address] [phone] 10/12/2019 Office Visit Gastroenterology Dolores Sheikh, ACNP [address] [facility] [address] [place] [address] [phone] Health Maintenance Due Date Last Done Comments [...] Results Not on filedocumented in this encounter Insurance Payer Benefit Plan Subscriber ID Effective Dates Phone Address Type / Group BCBS OF [facility] [id number] 2014-[place] [phone] [address] PPO/POS [place] t [id number] [place] [address] documented as of this encounter Advance Directives Name Relationship Healthcare Agent Relationship Communication Vaibhav Rivera Spouse First alternate healthcare agent Eli Cotton Mother First alternate healthcare agent
--- OUTSIDE RECORDS SUMMARY | 2019-11-11 10:50 | XMS REPORT | Summary of Care ---
:1965 Author Organization [facility] Address [address] [place] [address] Care Team Providers Name Role Phone Flores Jones Deloris SPEECH AND LANGUAGE TUTOR Primary Care Provider Reason for Visit Reason Comments UTI Encounter Details Date Type Department Care Team Description 09/27/2019 Telephone [facility] Akins[place], Delicia C, UTI [address] [place] [address] [address] [facility] [phone] [place] [address] Allergies Active Allergy Reactions Severity [...] contraceptive management 04/28/2015 Overview: ICD10 Diagnosis Term Traffic Incident Management Manager Utility H/O tubal ligation 04/28/2015 Overview: Essure procedure Dysfunctional uterine bleeding 01/25/2015 Metrorrhagia 01/09/2015 Generalized anxiety disorder 01/19/2013 documented as of this encounter (statuses as of 09/27/2019) Resolved Problems Problem Noted Date Resolved Date Overweight 01/19/2013 01/25/2015 Overview: ICD10 Diagnosis Term Traffic Incident Management Manager Utility documented as of this encounter [...] Office Visit Gastroenterology Dolores Sheikh, ACNP [address] [facility] [address] [place] [address] [phone] Health Maintenance Due Date Last Done Comments [...] Phone Address Type / Group BCBS OF [facility] [id number] 2014-[place] [phone] [address] PPO/POS [facility] [id number] [place] [address] documented as of this encounter Advance Directives Name Relationship Healthcare Agent Relationship Communication Vaibhav Rivera Spouse First alternate healthcare agent Eli Cotton Mother First alternate healthcare agent
[2019-11-11] MEDS ORDERED: LORAZEPAM 1 MG TABLET ONE (11:33)
[2019-11-11] MEDS ORDERED: ONDANSETRON 4 MG/2 ML VIAL ONE (11:33)
[2019-11-11 12:07] LABS: Absolute Lymphocytes (CBC) 2.8 K/uL (0.7-4.9); Basophils % 0.7 % (0-1.3); Hematocrit 38.6 % (36.0-45.0); Lymphocytes % 35.3 % (15.3-44.8); MPV 8.3 fL (7.6-11.3); RBC Red Blood Cell Count 4.61 M/uL (3.86-4.86)
[2019-11-11 12:10] LABS: Protime INR 0.91
--- NOTE | 2019-11-11 12:30 | RAD REPORT ---
EXAM DESCRIPTION: RAD - Chest Single View - 11/11/2019 12:10 pm CLINICAL HISTORY: SOB Chest pain. COMPARISON: Chest Pa And Lat (2 Views) dated 02/16/2019; CHEST SINGLE VIEW dated 10/25/2012; CHEST SING LE VIEW dated 12/21/2011 FINDINGS: Portable technique limits examination quality. The lungs are grossly clear. The heart is normal in size. No displaced fractures. IMPRESSION: No acute intrathoracic process suspected.
[2019-11-11 12:45] LABS: ALT/SGPT 38 U/L (12-78); AST/SGOT 22 U/L (15-37); Albumin 3.2 g/dL (3.4-5.0); Alkaline Phosphatase 89 U/L (45-117); BUN Blood Urea Nitrogen 18 mg/dL (7-18); Bicarbonate 28 mmol/L (21-32); Bilirubin Direct < 0.1 mg/dL (0-0.2); Bilirubin Total 0.3 mg/dL (0.2-1.0); Glucose Level 91 mg/dL (74-106); Magnesium 2.1 mg/dL (1.8-2.4); NT PRO-BNP 57 pg/mL (<125); Potassium 4.1 mmol/L (3.5-5.1); Protein, Total 7.2 g/dL (6.4-8.2); Sodium Level 143 mmol/L (136-145); Troponin (Emerg Dept Use Only) < 0.02 ng/mL (0.0-0.045)
--- NOTE | 2019-11-11 13:39 | RAD REPORT ---
EXAM DESCRIPTION: CT - Chest For Pe Angio - 11/11/2019 1:11 pm CLINICAL HISTORY: Chest pain. SOB COMPARISON: No comparisons TECHNIQUE: CT angiogram of the pulmonary arteries was performed with MIP. All CT scans are performed using dose optimization technique as appropriate and may include automated exposure control or mA/KV adjustment according to patient size. FINDINGS: No evidence of pulmonary thromboembolism. No acute aortic finding demonstrated. Mild interstitial pulmonary edema suspected. No significant pericardial or pleural fluid. No concerning bony finding. IMPRESSION: No evidence of pulmonary thromboembolism. Mild interstitial pulmonary edema.
--- NOTE | 2019-11-11 14:09 | EDPHYS ---
Physician Documentation [facility] Name: Magui Cotton Age: 54 yrs Sex: Female : 1965 Arrival Date: 11/11/2019 Time: 10:48 Bed 19 Private MD: ED Physician Jese Jay HPI: 11/10 11:20 This 54 yrs old Female presents to ER via Wheelchair with complaints of pm1 Shortness Of Breath. 11:20 The patient has shortness of breath at rest. Onset: The symptoms/episode began/occurred pm1 on and off for the past 1 week. The patient's shortness of breath is aggravated by nothing, is alleviated by Relaxation. Associated signs and symptoms: Pertinent positives: hyperventilation and tingling to bilateral hands, Pertinent negatives: chest pain, non-productive cough, productive cough, diaphoresis, fever, nausea, vomiting. Severity of symptoms: in the emergency department the symptoms have improved. The patient has experienced similar episodes in the past, a few times, today's symptoms are similar, to previous anxiety attacks. The patient has not recently seen a physician, the patient's primary care provider is Dr. Amaro. 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 - Social history:: Smoking status: Patient/guardian denies using tobacco, the patient reports quitting approximately 2 years ago. ROS: 11:20 Constitutional: Negative for fever, chills, and weight loss, Eyes: Negative for injury, pm1 pain, redness, and discharge, ENT: Negative for injury, pain, and discharge, Neck: Negative for injury, pain, and swelling. 11:20 Respiratory: Negative for shortness of breath, cough, wheezing, and pleuritic chest pain, Abdomen/GI: Negative for abdominal pain, nausea, vomiting, diarrhea, and constipation, Back: Negative for injury and pain, MS/Extremity: Negative for injury and deformity, Skin: Negative for injury, rash, and discoloration, Neuro: Negative for headache, weakness, numbness, tingling, and seizure. 11:20 Cardiovascular: Positive for chest pain, Negative for edema, palpitations. Exam: 11:20 Constitutional: This is a well developed, well nourished patient who is awake, alert, pm1 and in no acute distress. Head/Face: Normocephalic, atraumatic. Neck: Trachea midline, no thyromegaly or masses palpated, and no cervical lymphadenopathy. Supple, full range of motion without nuchal rigidity, or vertebral point tenderness. No Meningismus. Chest/axilla: Normal chest wall appearance and motion. Nontender with no deformity. No lesions are appreciated. Cardiovascular: Regular rate and rhythm with a normal S1 and S2. No gallops, murmurs, or rubs. Normal PMI, no JVD. No pulse deficits. Respiratory: Lungs have equal breath sounds bilaterally, clear to auscultation and percussion. No rales, rhonchi or wheezes noted. No increased work of breathing, no retractions or nasal flaring. Abdomen/GI: Soft, non-tender, with normal bowel sounds. No distension or tympany. No guarding or rebound. No evidence of tenderness throughout. Back: No spinal tenderness. No costovertebral tenderness. Full range of motion. Skin: Warm, dry with normal turgor. Normal color with no rashes, no lesions, and no evidence of cellulitis. MS/ Extremity: Pulses equal, no cyanosis. Neurovascular intact. Full, normal range of motion. Neuro: Awake and alert, GCS 15, oriented to person, place, time, and situation. Cranial nerves II-XII grossly intact. Motor strength 5/5 in all extremities. Sensory grossly intact. Cerebellar exam normal. Normal gait. 11:20 Psych: Behavior/mood is anxious, Affect is animated, Oriented to person, place, time. Vital Signs: 10:53 BP 128 / 79; Pulse 63; Resp 18 S; Temp 98.1; Pulse Ox 100% on R/A; Weight 115.21 kg; iw Height 5 ft. 3 in. (160.02 cm); 11:30 BP 115 / 73; Pulse 65; Resp 17 S; Pulse Ox 100% on R/A; Pain 0/10; jl7 12:30 BP 120 / 71; Pulse 58; Resp 19; Pulse Ox 98% ; jl7 13:43 BP 109 / 62; Pulse 60; Resp 14 S; Pulse Ox 99% on R/A; jl7 15:00 BP 106 / 64; Pulse 62; Resp 16 S; Pulse Ox 100% on R/A; jl7 10:53 Body Mass Index 44.99 (115.21 kg, 160.02 cm) iw MDM: 11:01 Patient medically screened. pm1 14:07 Data reviewed: vital signs. Data interpreted: Pulse oximetry: on room air is 99 %. pm1 Interpretation: normal. 14:07 Counseling: I had a detailed discussion with the patient and/or guardian regarding: the pm1 historical points, exam findings, and any diagnostic results supporting the discharge/admit diagnosis, lab results, radiology results, the need for outpatient follow up, to return to the emergency department if symptoms worsen or persist or if there are any questions or concerns that arise at home. 14:18 ED course: PMPAware: 02/16/2017 Tylenol #3 prescribed at that time. No apparent history pm1 of abuse. 11/10 11:20 Order name: Basic Metabolic Panel; Complete Time: 12:49 pm1 11/10 11:20 Order name: CBC with Diff; Complete Time: 12:14 pm1 11/10 11:20 Order name: LFT's; Complete Time: 12:49 pm1 11/10 11:20 Order name: Magnesium; Complete Time: 12:49 pm1 11/10 11:20 Order name: NT PRO-BNP; Complete Time: 12:49 pm1 11/10 11:20 Order name: PT-INR; Complete Time: 12:14 pm1 11/10 11:20 Order name: Troponin (emerg Dept Use Only); Complete Time: 12:49 pm1 11/10 11:20 Order name: XRAY Chest (1 view); Complete Time: 12:32 pm1 11/10 11:20 Order name: EKG; Complete Time: 11:21 pm1 11/10 11:20 Order name: Cardiac monitoring; Complete Time: 11:34 pm1 11/10 11:20 Order name: D-Dimer; Complete Time: 12:14 pm1 11/10 12:14 Order name: CT Chest For PE Angio; Complete Time: 13:44 pm1 11/10 11:20 Order name: EKG - Nurse/Tech; Complete Time: 12:46 pm1 11/10 11:20 Order name: IV Saline Lock; Complete Time: 12:46 pm1 11/10 11:20 Order name: Labs collected and sent; Complete Time: 12:46 pm1 11/10 11:20 Order name: O2 Per Protocol; Complete Time: 11:33 pm1 11/10 11:20 Order name: O2 Sat Monitoring; Complete Time: 11:33 pm1 Administered Medications: 11:33 Drug: Ativan 1 mg Route: PO; jl7 12:30 Follow up: Response: No adverse reaction; Anxiety decreased jl7 12:15 Drug: Zofran (Ondansetron) 4 mg Route: IVP; Site: right antecubital; jl7 12:30 Follow up: Response: No adverse reaction; Nausea is decreased jl7 Disposition: 18:20 Co-signature as Attending Physician, Jese Jay MD I agree with the assessment and gilles plan of care. Disposition: 11/11/19 14:08 Discharged to Home. Impression: Shortness of breath, Anxiety disorder, unspecified. - Condition is Stable. - Discharge Instructions: Panic Attacks, Hyperventilation, Shortness of Breath, Generalized Anxiety Disorder. - Prescriptions for Ativan 1 mg Oral Tablet - take 1 tablet by ORAL route every 8 hours As needed; 10 tablet. - Medication Reconciliation Form, Thank You Letter, Antibiotic Education, Prescription Opioid Use form. - Follow up: Emergency Department; When: As needed; Reason: Worsening of condition. Follow up: Private Physician; When: 2 - 3 days; Reason: Recheck today's complaints, Continuance of care, Re-evaluation by your physician. - Problem is new. - Symptoms have improved. Signatures: Dispatcher [employer] Jese Rivera MD MD cha Williams, Irene, RN RN iw Marinas, Patrick, NP APPLICATION DEVELOPMENT INTERN pm1 Jarrell Zuleta RN RN jl7 Corrections: (The following items were deleted from the chart) 15:20 14:08 11/11/2019 14:08 Discharged to Home. Impression: Shortness of breath; Anxiety jl7 disorder, unspecified. Condition is Stable. Forms are Medication Reconciliation Form, Thank You Letter, Antibiotic Education, Prescription Opioid Use. Follow up: Emergency Department; When: As needed; Reason: Worsening of condition. Follow up: Private Physician; When: 2 - 3 days; Reason: Recheck today's complaints, Continuance of care, Re-evaluation by your physician. Problem is new. Symptoms have improved. pm1
--- NOTE | 2019-11-11 14:09 | ER ---
Nurse's Notes [facility] Name: Magui Cotton Age: 54 yrs Sex: Female : 1965 Arrival Date: 11/11/2019 Time: 10:48 Bed 19 Private MD: Diagnosis: Shortness of breath;Anxiety disorder, unspecified Presentation: 11/10 10:53 Chief complaint: Patient states: difficulty breathing since yesterday, no hx of asthma iw or COPD, denies chest pain, arms are tingling and getting light headed , was hyperventilating. Coronavirus screen: The patient has NOT traveled to [place] in the past 14 days. Proceed with normal triage procedures. Coronavirus screen: The patient has NOT traveled to [place] in the past 14 days. Proceed with normal triage procedures. Ebola Screen: Patient negative for fever greater than or equal to 101.5 degrees Fahrenheit, and additional compatible Ebola Virus Disease symptoms Patient denies exposure to infectious person. Patient denies travel to an Ebola-affected area in the 21 days before illness onset. No symptoms or risks identified at this time. Initial Sepsis Screen: Does the patient meet any 2 criteria? No. Patient's initial sepsis screen is negative. Does the patient have a suspected source of infection? No. Patient's initial sepsis screen is negative. Risk Assessment: Do you want to hurt yourself or someone else? Patient reports no desire to harm self or others. 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 - Social history:: Smoking status: Patient/guardian denies using tobacco, the patient reports quitting approximately 2 years ago. Screenin:30 Abuse screen: Denies threats or abuse. Denies injuries from another. Nutritional jl7 screening: No deficits noted. Tuberculosis screening: No symptoms or risk factors identified. Fall Risk IV access (20 points). Total White Fall Scale indicates No Risk (0-24 pts). Assessment: 11:30 General: Appears in no apparent distress. uncomfortable, Behavior is cooperative, jl7 anxious, crying. Pain: Denies pain. Neuro: Level of Consciousness is awake, alert, obeys commands, Oriented to person, place, time, situation. Cardiovascular: Heart tones S1 S2 present Patient's skin is warm and dry. Rhythm is regular. Respiratory: Airway is patent Respiratory effort is even, unlabored, Respiratory pattern is regular, symmetrical, Breath sounds are clear bilaterally. GI: Reports nausea. Derm: Skin is pink, warm \T\ dry. 12:30 Reassessment: Patient appears in no apparent distress at this time. Patient and/or jl7 family updated on plan of care and expected duration. Pain level reassessed. Patient is alert, oriented x 3, equal unlabored respirations, skin warm/dry/pink. Patient states symptoms have improved. 13:42 Reassessment: Patient appears in no apparent distress at this time. Patient and/or jl7 family updated on plan of care and expected duration. Pain level reassessed. Patient is alert, oriented x 3, equal unlabored respirations, skin warm/dry/pink. Patient states feeling better. Patient states symptoms have improved. Vital Signs: 10:53 BP 128 / 79; Pulse 63; Resp 18 S; Temp 98.1; Pulse Ox 100% on R/A; Weight 115.21 kg; iw Height 5 ft. 3 in. (160.02 cm); 11:30 BP 115 / 73; Pulse 65; Resp 17 S; Pulse Ox 100% on R/A; Pain 0/10; jl7 12:30 BP 120 / 71; Pulse 58; Resp 19; Pulse Ox 98% ; jl7 13:43 BP 109 / 62; Pulse 60; Resp 14 S; Pulse Ox 99% on R/A; jl7 15:00 BP 106 / 64; Pulse 62; Resp 16 S; Pulse Ox 100% on R/A; jl7 10:53 Body Mass Index 44.99 (115.21 kg, 160.02 cm) iw ED Course: 10:48 Patient arrived in ED. as 10:55 Triage completed. iw 11:00 Jarrell Zuleta, WENDIE is Primary Nurse. jl7 11:01 Pankaj Arellano NP is PHCP. pm1 11:01 Jese Jay MD is Attending Physician. pm1 11:30 Patient has correct armband on for positive identification. Placed in gown. Bed in low jl7 position. Call light in reach. Side rails up X 1. youth nutritional monitor on. Pulse ox on. NIBP on. Warm blanket given. 11:30 Arm band placed on right wrist. Patient placed in an exam room, on a stretcher, on jl7 satellite project site monitor, on pulse oximetry. 11:55 Missed attempt(s): 20 gauge in right wrist. Bleeding controlled, band aid applied, ia1 catheter tip intact. 11:57 Initial lab(s) drawn, by me, sent to lab. EKG done, by ED staff, reviewed by Jese [email or web address] Pierre WILSON. Inserted saline lock: 20 gauge in right antecubital area, using aseptic technique. Blood collected. 12:10 XRAY Chest (1 view) In Process Unspecified. EDMS 13:11 CT completed. Patient tolerated procedure well. Patient moved back from CT. bq 13:12 CT Chest For PE Angio In Process Unspecified. EDMS 15:00 No provider procedures requiring assistance completed. IV discontinued, intact, jl7 bleeding controlled, No redness/swelling at site. Pressure dressing applied. Administered Medications: 11:33 Drug: Ativan 1 mg Route: PO; jl7 12:30 Follow up: Response: No adverse reaction; Anxiety decreased jl7 12:15 Drug: Zofran (Ondansetron) 4 mg Route: IVP; Site: right antecubital; jl7 12:30 Follow up: Response: No adverse reaction; Nausea is decreased jl7 Outcome: 14:08 Discharge ordered by . pm1 15:00 Discharged to home ambulatory. jl7 15:00 Condition: stable 15:00 Discharge instructions given to patient, family, Instructed on discharge instructions, follow up and referral plans. medication usage, Demonstrated understanding of instructions, follow-up care, medications, Prescriptions given X 1. 15:13 Attestation : I agree with everything documented by ALPA Rizzo. jl7 15:20 Patient left the ED. jl7 Signatures: Dispatcher [employer] EDMS Maureen Kearney Amelia as Donna Browning RN RN iw Pankaj Arellano, STUDENT ACCOUNTS COORDINATOR STUDENT ACCOUNTS COORDINATOR pm1 Jarrell Zuleta RN RN jl7 Janneth Mancilla [email or web address] So [email or web address] Corrections: (The following items were deleted from the chart) 12: 11:50 Initial lab(s) drawn, by me, sent to lab. EKG done, by ED staff, reviewed by [email or web address] Jese Jay MD kj1 12:04 11:50 Inserted saline lock: 20 gauge in right antecubital area, using aseptic kj1 technique. Blood collected. kj1
[2019-11-11 15:44] VITALS: TEMP 98.1
[2019-11-11 15:50] VITALS: BP 106/64; O2SAT 100
--- NOTE | 2019-11-12 15:35 | EKG ---
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
== END 2019-11-11 15:20 | disposition home or self-care (01) ==
LOC: ER 10:48
DX: F41.9 Anxiety disorder, unspecified (principal); R06.02 Shortness of breath; Z91.018 Allergy to other foods
CPT/HCPCS: 93005; 85025; 80048; 36415; 83735; 85610; 85379; 80076; 84484; 83880; 71275; 71045; 96374; 99285; Q9967; J2405

== ENCOUNTER 2020-11-07 08:11 | Emergency (ER) | payer BC ==
--- OUTSIDE RECORDS SUMMARY | 2020-11-07 08:13 | XMS REPORT | Continuity of Care Document ---
:1965 Author Organization [facility] t Address [address] [place] [address] Care Team Providers Name Role Phone Lab, Fam Pob I Attending Clinician Unavailable Ce RZIZO C Attending Clinician Problems Condition Condition Condition Status Onset Resolution Last Treating Co mments Source Name Details Category Date Date Treatment Clinician Date Nausea Nausea Problem [facility] Urinary Urinary Problem Active [facility] tract tract [facility] - infection infection Kilo kalen without without l hematuria, hematuria, Ou tpati site site ent unspecifie unspecifie Cl inics d d Abdominal Abdominal Problem Active [facility] pain, pain, [facility] - unspecifie unspecifie Me moria d d l abdominal abdominal Outp ati location location ent Clinics Elevated Elevated Problem Active [facility] BP without BP without Trang kes - diagnosis diagnosis Kilo kalen of of l hypertensi hypertensi Ou tpati on on ent Clinics Trichomona Trichomona Problem Active [facility] - infection infection Kilo kalen l Outpati ent Clinics Anxiety Anxiety Problem [facility] Rash and Rash and Problem Active [facility] nonspecifi nonspecifi Trang kes - c skin c skin Memoria eruption eruption l [facility]ics Allergic Allergic Problem Active [facility] reaction, reaction, Luke [facility] - initial initial Memoria encounter encounter l [facility]ics Anxiety Anxiety Problem Active [facility] and [facility] - depression depression Me moria l [facility] ent [facility] Pain in Pain in Problem Active [facility] right knee right knee Trang kes - Memoria [facility] ent [facility] 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 [facility] Other Other Problem Active [facility] chronic chronic [facility] High blood High blood Problem Active C [facility] pressure pressure [facility] Screening Screening Diagnosis Active C [facility] mammogram, mammogram, Trang kes - encounter encounter Kilo kalen for for l [facility] Well adult Well adult Diagnosis Active [facility] exam exam [facility] Allergies, Adverse Reactions, Alerts Allergy Allergy Status Severity Reaction(s) Onset Inactive Treating Comm ents Source Name Type Date Date Clinician mustard Adverse Active Lips swell, [facility] Reaction SOB, and [facility] - redness Memoria l [facility] Metronid Adverse Active SOB, [facility] azole Reaction redness, [facility] - neck Memoria swelling,; l this was [facility] 10-11 years ent ago Clinics Medications Ordered Filled Start Stop Current Ordering Indication Dosage Frequency Signature Comments Components Source Medication Medication Date Date Medication? Clinician (SIG) Name Name BusPIRone BusPIRone Yes Dedra [address] [facility] HCl HCl 3-03 Millender as needed [facility] - 00:00: for Memoria 00 anxiety l [facility] ent Clinics Nitrofurant Nitrofurant Yes Dedra [address] [facility] oin Monohyd oin Monohyd Millender with food [facility] - Macro Macro Memoria l [facility] ent Clinics Ondansetron Ondansetron Yes Dedra [address] [facility] [address] Millender on the [facility] - tongue and Memoria allow to l dissolve [facility] as needed ent Clinics Procedures This patient has no known procedures. Encounters Start End Encounter Admission Attending Care Care Encounter Source Date/Time Date/Time Type Type Clinicians Facility Department ID 2020-05-22 2020-05-22 Outpatient Navjot Mcneil [id number] [facility] 10:20:00 10:20:00 [facility] Medicine [facility] 2020-04-09 2020-04-09 [facility] [place] [id number] 09:40:00 09:40:[address] [facility] 2020-03-24 2020-03-24 Laboratory Lab, [facility] [id number] 09:11:29 09:31:29 Only Fam [facility] [id number] [place] [id number] [facility] [id number] nal [address] 2020-03-20 2020-03-20 [place] [id number] 08:19:00 08:19:00 [facility] 2019-11-29 2019-11-29 [facility] [id number] 16:45:00 16:45:00 [facility] 2019-11-13 2019-11-13 [facility] [id number] 23:34:00 23:34:00 [facility] 2019-11-13 2019-11-13 [facility] [id number] 10:15:00 10:15:00 [facility] 2019-10-03 2019-10-03 [place] [id number] 00:00:00 00:00:00 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 C 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 [id number] [facility] [id number] MATERNAL [id number] & CHILD [address] [place] [address] 2019-09-27 2019-09-27 [facility] [id number] 08:45:00 23:59:00 Encounter Delicia Guzman [place] [id number] [place] [id number] [place] [id number] 2019-09-27 2019-09-27 [facility] [id number] 00:00:00 00:00:00 Delicia Thomas 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 [id number] [place] [id number] MATERNAL [id number] & CHILD [address] [place] [address] 2019-01-23 2019-01-23 Outpatient Navjot Mcneil [id number] [address] 13:40:00 13:40:00 [facility] 2018-04-06 2018-04-06 Outpatient Navjot Mcneil [id number] 18:48:00 18:48:00 [facility] 2018-04-06 2018-04-06 Outpatient Navjot Mcneil [id number] 09:00:00 09:00:00 [facility] Results This patient has no known results.
[2020-11-07] MEDS ORDERED: ONDANSETRON 4 MG/2 ML VIAL ONE (08:55)
[2020-11-07] MEDS ORDERED: MORPHINE 4 MG/ML SYR ONE (08:55)
--- NOTE | 2020-11-07 09:28 | RAD REPORT ---
EXAM DESCRIPTION: RAD - Shoulder Left 2 View - 11/07/2020 9:11 am CLINICAL HISTORY: PAIN, slip and fall COMPARISON: No comparisons TECHNIQUE: Internal and external rotation views of the left shoulder were obtained. FINDINGS: There is no fracture or dislocation. AC joint is normal in appearance. No acute or suspici ous findings. IMPRESSION: Negative two-view left shoulder examination for acute findings.
--- NOTE | 2020-11-07 09:28 | RAD REPORT ---
EXAM DESCRIPTION: RAD - Humerus Left - 11/07/2020 9:11 am CLINICAL HISTORY: Slip and fall, arm pain COMPARISON: None. FINDINGS: No fracture is identified. There is no dislocation or periosteal reaction noted. No forei gn body or other soft tissue abnormality. IMPRESSION: Negative left humerus examination.
--- NOTE | 2020-11-07 09:47 | ER ---
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 she was in a pretty significant amount of pain on our arrival. no obvious deformity. we started an 18 G IV to her right AC and gave 100 mcg of Fentanyl.". Coronavirus screen: At this time, the client does not indicate any symptoms associated with coronavirus-19. Ebola Screen: Patient negative for fever greater than or equal to 101.5 degrees Fahrenheit, and additional compatible Ebola Virus Disease symptoms. Initial Sepsis Screen: Does the patient meet any 2 criteria? No. Patient's initial sepsis screen is negative. Does the patient have a suspected source of infection? No. Patient's initial sepsis screen is negative. Risk Assessment: Do you want to hurt yourself or someone else? Patient reports no desire to harm self or others. Onset of symptoms was November 07, 2020. 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 - Social history:: Smoking status: Patient/guardian denies using tobacco, but has a distant history of tobacco abuse. Screenin:24 Abuse screen: Denies threats or abuse. Nutritional screening: No deficits noted. jd3 Tuberculosis screening: No symptoms or risk factors identified. Fall Risk Ambulatory Aid- None/Bed Rest/Nurse Assist (0 pts). Gait- Normal/Bed Rest/Wheelchair (0 pts) Mental Status- Oriented to own ability (0 pts). Total White Fall Scale indicates No Risk (0-24 pts). Assessment: 08:25 General: Appears in no apparent distress. uncomfortable, Behavior is calm, cooperative, jd3 appropriate for age. Pain: Complains of pain in left shoulder Quality of pain is described as sharp. Neuro: Level of Consciousness is awake, alert, obeys commands, Oriented to person, place, time, situation. Cardiovascular: Capillary refill < 3 seconds Patient's skin is warm and dry. Respiratory: Airway is patent Respiratory effort is even, unlabored, Respiratory pattern is regular, symmetrical. GI: No signs and/or symptoms were reported involving the gastrointestinal system. : No signs and/or symptoms were reported regarding the genitourinary system. EENT: No signs and/or symptoms were reported regarding the EENT system. Derm: Skin is intact, Skin is dry, Skin is normal, Skin temperature is warm. Musculoskeletal: Circulation, motion, and sensation intact. Range of motion: limited in left shoulder Swelling present in anterior aspect of left shoulder. 09:04 Reassessment: Patient and/or family updated on plan of care and expected duration. Pain jd3 level reassessed. Patient is alert, oriented x 3, equal unlabored respirations, skin warm/dry/pink. x-ray at bedside, awaiting results. 10:57 Reassessment: Patient appears in no apparent distress at this time. Patient and/or jd3 family updated on plan of care and expected duration. Pain level reassessed. Patient is alert, oriented x 3, equal unlabored respirations, skin warm/dry/pink. Vital Signs: 08:24 BP 125 / 62; Pulse 68; Resp 17 S; Temp 98.4(TE); Pulse Ox 100% on R/A; Weight 117.93 kg jd3 (R); Height 5 ft. 4 in. (162.56 cm) (R); Pain 8/10; 09:04 Pulse 72; Resp 17 S; Pulse Ox 100% on R/A; jd3 09:51 BP 98 / 68; Pulse 62; Resp 17 S; Pulse Ox 100% on R/A; jd3 08:24 Body Mass Index 44.63 (117.93 kg, 162.56 cm) jd3 ED Course: 08:14 Patient arrived in ED. ss 08:16 Serafin Sosa MD is Attending Physician. kdr 08:20 Dale Santiago, RN is Primary Nurse. jd3 08:22 Triage completed. jd3 08:24 Arm band placed on. jd3 08:25 Patient has correct armband on for positive identification. Placed in gown. Bed in low jd3 position. Call light in reach. Side rails up X2. Pulse ox on. NIBP on. 09:11 Shoulder Left (2 View) XRAY In Process Unspecified. EDMS 09:11 Humerus Left XRAY In Process Unspecified. EDMS 09:45 Antoine Tripp MD is Referral Physician. kdr 10:00 Maintain EMS IV. Dressing intact. Good blood return noted. Site clean \\T\\ dry. Gauge \\T\\ renae 3 site: 18 G right AC. 10:58 No provider procedures requiring assistance completed. IV discontinued, intact, jd3 bleeding controlled, No redness/swelling at site. Pressure dressing applied. Administered Medications: 08:40 Drug: Zofran (Ondansetron) 4 mg Route: IVP; Site: right antecubital; jl7 09:40 Follow up: Response: No adverse reaction jd3 08:42 Drug: morphine 4 mg Route: IVP; Site: right antecubital; jl7 09:40 Follow up: Response: No adverse reaction; RASS: Alert and Calm (0) jd3 Outcome: 09:46 Discharge ordered by . kdr 10:58 Discharged to home via wheelchair, with family. jd3 10:58 Condition: stable 10:58 Discharge instructions given to patient, Instructed on discharge instructions, follow up and referral plans. medication usage, Demonstrated understanding of instructions, follow-up care, medications, Prescriptions given X 2. 11:00 Patient left the ED. jd3 Signatures: Dispatcher [employer] EDSC Serafin Sosa MD MD kdr Jazmin Hayes RN RN ss Leal, Jahala, RN RN jl7 Dale Santiago, WENDIE RN jd3 Corrections: (The following items were deleted from the chart) 08:49 08:25 Musculoskeletal: Circulation, motion, and sensation intact. Range of motion: jd3 intact in all extremities, jd3
--- NOTE | 2020-11-07 09:47 | EDPHYS ---
Physician Documentation [facility] Name: Magui Cotton Age: 55 yrs Sex: Female : 1965 Arrival Date: 11/07/2020 Time: 08:14 Bed 7 Private MD: ED Physician Serafin Sosa HPI: 11/07 14:16 This 55 yrs old Female presents to ER via EMS with complaints of left shoulder kdr pain. 14:16 The patient or guardian complains of contusion, decreased range of motion, an injury, kdr pain, that is acute, tenderness. left shoulder. Context: The problem was sustained at work, resulted from a fall, while walking, The patient experiences decreased range of motion, The patient reports no obvious deformity. Onset: The symptoms/episode began/occurred suddenly, just prior to arrival. Modifying factors: the symptoms are alleviated by remaining still, The symptoms are aggravated by movement, rotation of arm. Associated signs and symptoms: The patient has no apparent associated signs or symptoms. Severity of symptoms: At their worst the symptoms were moderate, in the emergency department the symptoms are unchanged. Treatment prior to arrival includes: no previous treatment. The patient has not experienced similar symptoms in the past. 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 - Social history:: Smoking status: Patient/guardian denies using tobacco, but has a distant history of tobacco abuse. ROS: 14:16 Constitutional: Negative for fever, chills, and weight loss, Eyes: Negative for injury, kdr pain, redness, and discharge, ENT: Negative for injury, pain, and discharge, Neck: Negative for injury, pain, and swelling, Cardiovascular: Negative for chest pain, palpitations, and edema, Respiratory: Negative for shortness of breath, cough, wheezing, and pleuritic chest pain, Abdomen/GI: Negative for abdominal pain, nausea, vomiting, diarrhea, and constipation, Back: Negative for injury and pain, : Negative for injury, bleeding, discharge, and swelling, Skin: Negative for injury, rash, and discoloration, Neuro: Negative for headache, weakness, numbness, tingling, and seizure activity. Psych: Negative for depression, anxiety, suicide ideation, homicidal ideation, and hallucinations, Allergy/Immunology: Negative for hives, rash, and allergies, Endocrine: Negative for neck swelling, polydipsia, polyuria, polyphagia, and marked weight changes, Hematologic/Lymphatic: Negative for swollen nodes, abnormal bleeding, and unusual bruising. 14:16 MS/extremity: Positive for injury or acute deformity, decreased range of motion, pain, swelling, tenderness. Exam: 14:16 Constitutional: This is a well developed, well nourished patient who is awake, alert, kdr and in no acute distress. Head/Face: Normocephalic, atraumatic. Eyes: Pupils equal round and reactive to light, extra-ocular motions intact. Lids and lashes normal. Conjunctiva and sclera are non-icteric and not injected. Cornea within normal limits. Periorbital areas with no swelling, redness, or edema. Neck: Trachea midline, no thyromegaly or masses palpated, and no cervical lymphadenopathy. Supple, full range of motion without nuchal rigidity, or vertebral point tenderness. No Meningismus. Chest/axilla: Normal chest wall appearance and motion. Nontender with no deformity. No lesions are appreciated. Cardiovascular: Regular rate and rhythm with a normal S1 and S2. No gallops, murmurs, or rubs. Normal PMI, no JVD. No pulse deficits. Respiratory: Lungs have equal breath sounds bilaterally, clear to auscultation and percussion. No rales, rhonchi or wheezes noted. No increased work of breathing, no retractions or nasal flaring. Abdomen/GI: Soft, non-tender, with normal bowel sounds. No distension or tympany. No guarding or rebound. No evidence of tenderness throughout. Back: No spinal tenderness. No costovertebral tenderness. Full range of motion. Skin: Warm, dry with normal turgor. Normal color with no rashes, no lesions, and no evidence of cellulitis. Neuro: Awake and alert, GCS 15, oriented to person, place, time, and situation. Cranial nerves II-XII grossly intact. Motor strength 5/5 in all extremities. Sensory grossly intact. Cerebellar exam normal. Normal gait. Psych: Awake, alert, with orientation to person, place and time. Behavior, mood, and affect are within normal limits. 14:16 Musculoskeletal/extremity: Extremities: grossly normal except: noted in the anterior aspect of left shoulder and posterior aspect of left shoulder: decreased ROM, pain, tenderness. Vital Signs: 08:24 BP 125 / 62; Pulse 68; Resp 17 S; Temp 98.4(TE); Pulse Ox 100% on R/A; Weight 117.93 kg jd3 (R); Height 5 ft. 4 in. (162.56 cm) (R); Pain 8/10; 09:04 Pulse 72; Resp 17 S; Pulse Ox 100% on R/A; jd3 09:51 BP 98 / 68; Pulse 62; Resp 17 S; Pulse Ox 100% on R/A; jd3 08:24 Body Mass Index 44.63 (117.93 kg, 162.56 cm) jd3 MDM: 09:46 Patient medically screened. kdr 14:16 Data reviewed: vital signs, nurses notes, radiologic studies. Counseling: I had a kdr detailed discussion with the patient and/or guardian regarding: the historical points, exam findings, and any diagnostic results supporting the discharge/admit diagnosis, radiology results, the need for outpatient follow up. 11/07 08:33 Order name: Shoulder Left (2 View) XRAY; Complete Time: 09:44 kdr 11/07 08:33 Order name: Humerus Left XRAY; Complete Time: 09:44 kdr 11/07 09:57 Order name: Sling; Complete Time: 10:08 kdr Administered Medications: 08:40 Drug: Zofran (Ondansetron) 4 mg Route: IVP; Site: right antecubital; jl7 09:40 Follow up: Response: No adverse reaction jd3 08:42 Drug: morphine 4 mg Route: IVP; Site: right antecubital; jl7 09:40 Follow up: Response: No adverse reaction; RASS: Alert and Calm (0) jd3 Disposition: 11/07/20 09:46 Discharged to Home. Impression: Pain in left shoulder, Other slipping, tripping and stumbling and falls. - Condition is Stable. - Discharge Instructions: Musculoskeletal Pain, Shoulder Range of Motion Exercises, Shoulder Pain, [id number], Fall Prevention in the Home, [id number]. - Prescriptions for Cyclobenzaprine 10 mg Oral Tablet - take 1 tablet by ORAL route every 8 hours As needed; 15 tablet. Tramadol 50 mg Oral Tablet - take 1 tablet by ORAL route every 8 hours as needed; 16 tablet. - Medication Reconciliation Form, Thank You Letter, Prescription Opioid Use, Work release form form. - Follow up: Private Physician; When: 2 - 3 days; Reason: If symptoms return, Further diagnostic work-up, Recheck today's complaints, Continuance of care, Re-evaluation by your physician. Follow up: Antoine Tripp MD; When: 2 - 3 days; Reason: If symptoms return, Further diagnostic work-up, Recheck today's complaints, Continuance of care, Re-evaluation by your physician. - Problem is new. - Symptoms have improved. Signatures: Dispatcher [employer] EDMS Serafin Sosa MD MD kdr Jarrell Zuleta RN RN jl7 Dale Santiago RN RN jd3 Corrections: (The following items were deleted from the chart) 11:00 09:46 11/07/2020 09:46 Discharged to Home. Impression: Pain in left shoulder; Other jd3 slipping, tripping and stumbling and falls. Condition is Stable. Forms are Medication Reconciliation Form, Thank You Letter, Antibiotic Education, Prescription Opioid Use. Follow up: Private Physician; When: 2 - 3 days; Reason: If symptoms return, Further diagnostic work-up, Recheck today's complaints, Continuance of care, Re-evaluation by your physician. Follow up: Dr. Antoine Tripp; When: 2 - 3 days; Reason: If symptoms return, Further diagnostic work-up, Recheck today's complaints, Continuance of care, Re-evaluation by your physician. Problem is new. Symptoms have improved. kdr
[2020-11-07 11:27] VITALS: TEMP 98.4; O2SAT 100
[2020-11-07 11:29] VITALS: BP 98/68
== END 2020-11-07 11:00 | disposition home or self-care (01) ==
LOC: ER 08:11
DX: M25.512 Pain in left shoulder (principal); W01.0XXA Fall on same level from slipping, tripping and stumbling without subsequent striking against object, initial encounter; Y93.01 Activity, walking, marching and hiking; Y92.9 Unspecified place or not applicable; Z88.8 Allergy status to other drugs, medicaments and biological substances; Z91.018 Allergy to other foods
CPT/HCPCS: 73060; 73030; 96375; 96374; 99284; J2405

== ENCOUNTER 2024-02-23 18:31 | Emergency (ER) | payer BC, SELFPAY ==
--- OUTSIDE RECORDS SUMMARY | 2024-02-23 18:35 | XMS REPORT | Continuity of Care Document ---
Author Name Unknown Address [address] [facility] [place] [address] [facility] thconnect Address [address] [facility] [address] [place] [address] Care Team Providers Care Latin Dancer Name Role Phone Flores Vargas Primary Care Physician Un available Dedra Amaro Attending Clinician Unavailable GALLO KAUR Attending Clinician Unavailable Gallo Kaur MD Attending Clinician Steve Payne DO Attending Clinician Doctor Unassigned, [place] Attending Clinician [facility], Adc Fam Pob I Attending Clinician Unavailab Jakub Vargas Attending Clinician JAKUB CHRISTIANSON Attending Clinician Unavailabl Delicia Carrillo Attending Clinician + GALLO KAUR Admitting Clinician Unavailable Payers Payer Name Policy Type Policy Number Effective Date Expirati on Date Source [facility] [id number] 2014 00:00:00 Problems Condition Name Condition Details Condition Category Status Onset Date Resolution Date Last Treatment Date Treating Clinician Comments Source Colon cancer screening Colon cancer screening Disease Active 10-12 00:00: 00 Overview: Formattin g of this note might be different from the original. Added automatic ally from request for surgery [id number] [facility] UTI (urinary tract infection) UTI (urinary tract infection) Disease Active 09-27 00:00: 00 [facility] Well woman exam Well woman exam Disease Active 09-24 00:00: 00 [facility] Menopausal state Menopausal state Disease Active 09-24 00:00: 00 [facility] Morbid obesity Morbid obesity Disease Active 05-23 00:00: 00 [facility] BMI 45.0-49.9, adult BMI 45.0-49.9, adult Disease Active 05-23 00:00: 00 [facility] History of tobacco abuse History of tobacco abuse Disease Active 04-28 00:00: 00 [facility] General counseling and advice for contracept nj management General counseling and advice for contracept nj management Disease Active 04-28 00:00: 00 Overview: Formattin g of this note might be different from the original. 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 Essure procedure [facility] Dysfunctio nal uterine bleeding Dysfunctio nal uterine bleeding Disease Active 01-25 00:00: 00 [facility] Metrorrhag ia Metrorrhag ia Disease Active 01-09 00:00: 00 [facility] Generalize d anxiety disorder Generalize d anxiety disorder Disease Active 01-19 00:00: 00 [facility] Nausea Nausea Problem Active [facility] Urinary tract infection without hematuria, site unspecifie d Urinary tract infection without hematuria, site unspecifie d Problem Active [facility] Abdominal pain, unspecifie d abdominal location Abdominal pain, unspecifie d abdominal location Problem Active [facility] Elevated BP without diagnosis of hypertensi on Elevated BP without diagnosis of hypertensi on Problem Active [facility] Trichomona s infection Trichomona s infection Problem Active [facility] Anxiety Anxiety Problem Active [facility] Rash and nonspecifi c skin eruption Rash and nonspecifi c skin eruption Problem Active [facility] Allergic reaction, initial encounter Allergic reaction, initial encounter Problem Active [facility] Anxiety and depression Anxiety and depression Problem Active [facility] Pain in right knee Pain in right knee Problem Active [facility] Allergic rhinitis Allergic rhinitis Problem Active [facility] Other chronic pain Other chronic pain Problem Active [facility] High blood pressure High blood pressure Problem Active [facility] Screening mammogram, encounter for Screening mammogram, encounter for Diagnosis Active [facility] Well adult exam Well adult exam Diagnosis Active [facility] Allergies, Adverse Reactions, Alerts Allergy Name Allergy Type Status Severity Reaction(s) Onset Date Inactive Date Treating Clinician Comments Source Metronid azole Propensi ty to adverse reaction s Active Hives 04-03 00:00: 00 Difficult y breathing [facility] Mustard Propensi ty to adverse reaction s Active Hives 04-03 00:00: 00 Breathing difficult y [facility] METRONID AZOLE DRUG INGREDI Active Hives 04-03 00:00: 00 [facility] MUSTARD DRUG INGREDI Active Hives 04-03 00:00: 00 [facility] mustard Adverse Reaction Active Lips swell, SOB, and redness [facility] Metronid azole Adverse Reaction Active SOB, redness, neck swelling,; this was 10-[address] [facility] Social History Social Habit Start Date Stop Date Quantity Comments Source [facility] to SARS-CoV-2 (event) 2022-11-03 00:00:00 2022-11-13 12:29:00 Yes [facility] History of Social function 2020-04-16 00:00:00 2020-04-16 00:00:00 [facility] Alcohol intake 2019-10-12 00:00:00 2019-10-12 00:00:00 Current drinker of alcohol (finding) [facility] Tobacco use and exposure 2019-09-24 00:00:00 2019-09-24 00:00:00 Smokeless tobacco non-user [facility] History of tobacco use 2018-09-24 00:00:00 Cigarette Smoker [facility] Alcohol Comment 2018-05-23 00:00:00 2018-05-23 00:00:00 socially [facility] Sex Ass[birth year] At 1965 00:00:00 1965 00:00:00 [facility] Smoking Status Start Date Stop Date Source Ex-smoker 2019-09-24 00:00:00 2019-09-24 00[facility]00[facility] Ordered Medication Name Filled Medication Name Start Date Stop Date Current Medication? Ordering Clinician Indication Dosage Frequency Signature (SIG) Comments Components Source NaCl 0.9% (NS) bolus infusion 500 mL 11-13 20:30: 00 11-13 20:47 :00 No 500mL at 999 mL/hr, 500 mL, IV Piggyback, ONCE, 1 dose, On 11/13/22 at 1430, STAT [facility] iopamidol (ISOVUE 370-500 mL) injection 100 mL 11-13 19:15: 00 11-13 19:15 :00 No [id number] 100mL 100 mL, Intravenou s, ONCE, 1 dose, On 11/13/22 at 1315, Routine [facility] BusPIRone HCl BusPIRone HCl 11-12 00:00: 00 Yes Dedra Millender 1 tablet as needed for anxiety [facility] peg-electro lyte soln 236-22.74-6 .74 -5.86 gram solution 10-12 00:00: 00 Yes [id number] Take as directed before colonoscop y [facility] Nitrofurant oin&Nit. Macrocryst (MACROBID) 100 mg capsule 09-27 00:00: 00 Yes [id number] 100mg Take 1 capsule by mouth 2 (two) times daily. [facility] tinidazole 250 mg tablet 2017-06-07 00:00: 00 Yes 2000mg Take 8 tablets by mouth daily with breakfast. [facility] Nitrofurant oin Monohyd Macro Nitrofurant oin Monohyd Macro Yes Dedra Millender [address] [facility] Ondansetron Ondansetron Yes Dedra Millender 1 tablet on the tongue and allow to dissolve as needed [facility] Vital Signs Vital Name Observation Time Observation Value Comments S sowmya Systolic blood pressure 2022-11-13 20:30:00 133 mm[Hg] [facility] Diastolic blood pressure 2022-11-13 20:30:00 67 mm[Hg] [facility] Heart rate 2022-11-13 20:30:00 67 /min [facility] Respiratory rate 2022-11-13 20:30:00 27 /min [facility] Oxygen saturation in Arterial blood by Pulse oximetry 2022-11-13 20:30:00 99 /min [facility] Body temperature 2022-11-13 17:46:00 37.11 Abena [facility] Body weight 2022-11-13 17:46:00 115.214 kg [facility] BMI 2022-11-13 17:46:00 44.99 kg/m2 [facility] Procedures Procedure Date / Time Performed Performing Clinician Source EKG-12 LEAD 2022-11-13 20:11:45 Gallo Kaur [facility] URINALYSIS 2022-11-13 19:14:00 Gallo Kaur [facility] XR CHEST 1 VW 2022-11-13 18:27:40 Gallo Kaur [facility] CT ANGIOGRAM HEAD 2022-11-13 18:23:09 Gallo Kaur U [facility] CT ANGIOGRAM NECK 2022-11-13 18:23:09 Gallo Kaur [facility] CT HEAD WO CONTRAST 2022-11-13 18:20:33 Gallo Kaur [facility] CK (CREATINE KINASE) + MB 2022-11-13 18:02:00 Gallo Kaur [facility] LIPASE 2022-11-13 18:02:00 Gallo Kaur [facility] TROPONIN I 2022-11-13 18:02:00 Gallo Kaur [facility] THYROID STIMULATING HORMONE 2022-11-13 18:02:00 Gallo Kaur [facility] COMP. METABOLIC PANEL ([id number]) 2022-11-13 18:02:00 Gallo Kaur [facility] CBC WITH DIFF 2022-11-13 18:02:00 Gallo Kaur [facility] POCT GLUCOSE (AUTOMATED) 2022-11-13 17:54:00 Emory Kaur [facility] BI SCREENING TOMOSYNTHESIS BILATERAL 2019-09-27 15:34:45 Delicia Encinas [facility] Encounters Start Date/Time End Date/Time Encounter Type Admission Type Attending [facility] Care Facility Care Department Encounter ID Source 2021-10-07 11:33:36 Outpatient Dedra Amaro [facility] [id number] [facility] 2021-10-07 11:30:35 Outpatient Dedra Amaro [facility] [id number] [facility] 2021-10-07 11:14:51 Outpatient Dedra Amaro [facility] [id number] [facility] 2021-10-07 11:14:22 Outpatient Dedra Amaro [facility] [id number] [facility] 2022-11-13 11:48:00 2022-11-13 14:51:00 Emergency X GALLO KAUR [facility] ERT [id number] [facility] 2022-11-13 11:48:00 2022-11-13 14:51:00 Emergency Gallo Kaur [facility] [id number] 350.1.13.10 4.2.7.2.686 [id number] [facility] 2020-11-25 00:00:00 2020-11-25 00:00:00 Patient Outreach Elmer Steve Luis [facility] [id number] 350.1.13.10 4.2.7.2.686 [id number] [facility] 2020-05-22 10:20:00 2020-05-22 10:20:00 Outpatient [facility] [id number] [facility] 2020-04-09 09:40:00 2020-04-09 09:40:00 Outpatient [facility] [id number] [facility] 2020-03-26 00:00:00 2020-03-26 00:00:00 Patient Secure Msg Doctor Unassigned, [place] [facility] [id number] 350.1.13.10 4.2.7.2.686 [id number] [facility] 2020-03-24 09:11:29 2020-03-24 09:31:29 Laboratory Only Lab, [facility] [address] 1.84.114 350.1.13.10 4.2.7.2.686 [id number] 2020-03-24 09:11:29 2020-03-24 09:31:29 Laboratory Only Lab, [facility] Jakub Christianson [facility] [address] .84.114 350.1.13.10 4.2.7.2.686 [id number] [facility] 2020-03-24 09:00:00 2020-03-24 09:00:00 Outpatient Deloris MEGHAN JAKUB [facility] [id number] [facility] 2020-03-20 08:19:00 2020-03-20 08:19:00 Outpatient [facility] [id number] [facility] 2019-11-29 16:45:00 2019-11-29 16:45:00 Outpatient [facility] [id number] [facility] 2019-11-13 23:34:00 2019-11-13 23:34:00 Outpatient [facility] Medicine [id number] [facility] 2019-11-13 10:15:00 2019-11-13 10:15:00 [facility] [id number] [facility] 2019-10-03 00:00:00 2019-10-03 00:00:00 Refill Akinsipe, Delicia C [facility] RECREATION MANAGER [facility] MATERNAL & CHILD [facility] [id number] 350.1.13.10 4.2.7.2.686 [id number] 2019-10-03 00:00:00 2019-10-03 00:00:00 Refill Akinsipe, Delicia C [facility] RECREATION MANAGER [facility] CHILD [facility] [id number] 350.1.13.10 4.2.7.2.686 [id number] [facility] 2019-09-27 08:45:00 2019-09-27 23:59:00 Hospital Encounter Akinsipe, Delicia C [facility] [id number] 350.1.13.10 4.2.7.2.686 [id number] 2019-09-27 08:45:00 2019-09-27 23:59:00 Hospital Encounter Akinsipe, Delicia C [facility] [id number] 350.1.13.10 4.2.7.2.686 [id number] [facility] 2019-09-27 00:00:00 2019-09-27 00:00:00 Telephone Delicia Encinas [facility] RECREATION MANAGER [facility] & CHILD [facility] 1.2.840.114 350.1.13.10 4.2.7.2.686 [id number] 2019-09-27 00:00:00 2019-09-27 00:00:00 Telephone Delicia Encinas [facility] RECREATION MANAGER [facility] CH[facility] 1.2.840.114 350.1.13.10 4.2.7.2.686 [id number] [facility] 2019-09-25 00:00:00 2019-09-25 00:00:00 Telephone Delicia Encinas [facility] RECREATION MANAGER [facility] 1.2.840.114 350.1.13.10 4.2.7.2.686 [id number] [facility] 2019-01-23 13:40:00 2019-01-23 13:40:00 Outpatient [facility] [id number] [facility] 2018-04-06 18:48:00 2018-04-06 18:48:00 Outpatient [facility] [id number] [facility] 2018-04-06 09:00:00 2018-04-06 09:00:00 Outpatient [facility] [id number] [facility] Results Test Description Test Time Test Comments Results Result Co mments Source [id number] 18:35:56* Test Item Value Reference Range Interpretation Comme nts TROPONIN I (test code = 0934118266) 0.003 ng/mL <=0.034 SHYAM (test code = SHYAM) Reference (Normal) Range (defined by the 99th percentile reference limit): <= 0.034 ng/mL Note: Cardiac troponin begins to rise 3-4 hours after the onset of ischemia. Repeat in 4-6 hours if the sample was drawn within 3-4 hours of the onset of the symptom and found normal. Diagnosis of myocardial injury is made with acute changes in cTn concentrations with at least one serial sample above the 99th percentile upper reference limit (URL), taken together with the patient's clinical presentation. Biotin has been reported to cause a negative bias, interpret results relative to patient's use of biotin. Lab Interpretation (test code = 32296-3) [facility] + [id number] 18:32:38* Test Item Value Reference Range Interpretation Comme nts CK (test code = 5111138628) 109 U/L 33-194 CK-MB (test code = 4354373147) 0.83 ng/mL <=3.50 CKMB INDEX (test code = 5136167302) 0.8 % 0.0-2.5 SHYAM (test code = SHYAM) Biotin has been reported to cause a negative bias, interpret results relative to patient's use of biotin. Lab Interpretation (test code = 57760-3) [facility] (10316)2022-11-13 18:24:00* Test Item Value Reference Range Interpretation Comme nts NA (test code = 6487600755) 138 mmol/L 135-145 K (test code = 2279811405) 3.7 mmol/L 3.5-5.0 CL (test code = 7805845301) 106 mmol/L 98-108 CO2 TOTAL (test code = 7326074669) 24 mmol/L 23-31 AGAP (test code = 5713055794) 8 2-16 BUN (test code = 5207428023) 12 mg/dL 7-23 GLUCOSE (test code = 0004272450) 152 mg/dL 70-110 H CREATININE (test code = 3057619854) 0.58 mg/dL 0.50-1.04 TOTAL BILI (test code = 2439528535) 0.5 mg/dL 0.1-1.1 CALCIUM (test code = 2982752013) 8.5 mg/dL 8.6-10.6 L T PROTEIN (test code = 1197974386) 7.2 g/dL 6.3-8.2 ALBUMIN (test code = 5157775922) 4.0 g/dL 3.5-5.0 ALK PHOS (test code = 0314606996) 67 U/L 34-122 ALTv (test code = 1742-6) 35 U/L 5-35 AST(SGOT) (test code = 3621004105) 31 U/L 13-40 eGFR (test code = 2718196261) 107.5 mL/min/1.73m2 SHYAM (test code = SHYAM) Association of Glomerular Filtration Rate (GFR) and Staging of Kidney Disease* + --+ --+ ------+| GFR (mL/min/1.73 m2) ?| With Kidney Damage ?| ?Without Kidney Damage+ --------+ --------+ +| ?>90 ?| ?Stage one ?| ? Normal ?+ ---+ ---+ -------+| ?60-89 ?| ?Stage two ?| ? Decreased GFR ? + --+ --+ ------+| ?30-59 ?| ?Stage three ?| ? Stage three ? + --+ --+ ------+| ?15-29 ?| ?Stage four ? | ? Stage four ?+ ---+ ---+ -------+| ?<15 (or dialysis) ? ?| ?Stage five ? | ? Stage five ?+ ---+ ---+ -------+ *Each stage assumes the associated GFR level has been in effect for at least three months. ?Stages 1 to 5, with or without kidney disease, indicate chronic kidney disease. Notes: Determination of stages one and two (with eGFR >59mL/min/1.73 m2) requires estimation of kidney damage for at least three months as defined by structural or functional abnormalities of the kidney, manifested by either:Pathological abnormalities or Markers of kidney damage (including abnormalities in the composition of the blood or urine or abnormalities in imaging tests). Lab Interpretation (test code = 84075-9) Abnormal [facility] 18:23:45* Test Item Value Reference Range Interpretation Comme nts LIPASE (test code = 6893181381) 77 U/L 0-220 Lab Interpretation (test cod e = 50824-5) Normal [facility] WITH [id number] 18:11:37* Test Item Value Reference Range Interpretation Comme nts WBC (test code = 6690-2) 7.22 See_Comment [Automated [employer] ge] The system which generated this result transmitted reference range: 4.30 - 11.10 10*3/?L. The reference range was not used to interpret this result as normal/abnormal. RBC (test code = 789-8) 4.70 See_Comment [Automated [employer] ge] The system which generated this result transmitted reference range: 3.93 - 5.25 10*6/?L. The reference range was not used to interpret this result as normal/abnormal. HGB (test code = 718-7) 12.9 g/dL 11.6-15.0 HCT (test code = 4544-3) 39.2 % 35.7-45.2 MCV (test code = 787-2) 83.4 fL 80.6-95.5 MCH (test code = 785-6) 27.4 pg 25.9-32.8 MCHC (test code = 786-4) 32.9 g/dL 31.6-35.1 RDW-SD (test code = 38423-9) 42.5 fL 39.0-49.9 RDW-CV (test code = 788-0) 13.9 % 12.0-15.5 PLT (test code = 777-3) 245 See_Comment [Automated [employer] Vineloop] The system which generated this result transmitted reference range: 166 - 358 10*3/?L. The reference range was not used to interpret this result as normal/abnormal. MPV (test code = 78589-5) 9.6 fL 9.5-12.9 NRBC/100 WBC (test code = 7485372871) 0.0 See_Comment [Automated [employer] ssage] The system which generated this result transmitted reference range: 0.0 - 10.0 /100 WBCs. The reference range was not used to interpret this result as normal/abnormal. NRBC x10^3 (test code = 7963140107) See_Comment [Automated [employer] ssage] The system which generated this result transmitted reference range: 10*3/?L. The reference range was not used to interpret this result as normal/abnormal. GRAN MAT (NEUT) % (test code = 770-8) 51.7 % IMM GRAN % (test code = 7226529386) 0.70 % LYMPH % (test code = 736-9) 39.9 % MONO % (test code = 5905-5) 5.3 % EOS % (test code = 713-8) 1.8 % BASO % (test code = 706-2) 0.6 % GRAN MAT x10^3(ANC) (test code = 3132064109) 3.74 10*3/uL 1.88-7.09 IMM GRAN x10^3 (test code = 6849138832) 0.05 10*3/uL 0.00-0.06 LYMPH x10^3 (test code = 731-0) 2.88 10*3/uL 1.32-3.29 MONO x10^3 (test code = 742-7) 0.38 10*3/uL 0.33-0.92 EOS x10^3 (test code = 711-2) 0.13 10*3/uL 0.03-0.39 BASO x10^3 (test code = 704-7) 0.04 10*3/uL 0.01-0.07 [facility]-13 17:58:40* Test Item Value Reference Range Interpretation Comme nts POCT GLU (test code = 5035309191) 157 mg/dL 70-110 H Lab Interpretation (test cod e = 51901-6) Abnormal [facility]THESIS [id number] 16:10:12Examination:BI SCREENING TOMOSYNTHESIS BILATERAL History:Patient is 54 year old and is seen for: ?Routine. Computer-aided detection (CAD) utilized. Comparisons: 07/18/2018 BI SCREENING TOMOSYNTHESIS BILATERAL, 02/10/2015 DIGITAL MAMMOGRAM, SCREENING, and 03/08/2012 DIGITAL MAMMOGRAM, SCREENING Findings:The breasts have scattered areas of fibroglandular density. BilateralThere are vascular calcifications seen in both breasts. Impression:No signs of malignancy. Recommendation:Annual mammographic follow-up - Bilateral BI-RADS Category: Both 2 [facility]"
[2024-02-23] MEDS ORDERED: IBUPROFEN 400 MG TAB ONE (19:28)
[2024-02-23] MEDS ORDERED: HYDROCODONE/APAP 7.5/325 MG TAB ONE (19:28)
--- NOTE | 2024-02-23 20:19 | RAD REPORT ---
EXAM DESCRIPTION: RAD - Shoulder Left 2 View - 02/23/2024 7:34 pm CLINICAL HISTORY: PAIN COMPARISON: Shoulder Left 2 View dated 11/07/2020 TECHNIQUE: Internal and external rotation views of the left shoulder were obtained. FINDINGS: There is no fracture or dislocation. AC joint is widened with mild degenerative changes. S equelae of prior rotator cuff repair. No acute or suspicious findings. IMPRESSION: No acute osseous abnormality. Widening of the AC joint, which may relate to postoperativ e changes. Patient status post rotator cuff repair.
--- NOTE | 2024-02-23 20:24 | RAD REPORT ---
EXAM DESCRIPTION: RAD - Thoracic Spine Ap/Lat - 02/23/2024 7:34 pm CLINICAL HISTORY: PAIN COMPARISON: No comparisons TECHNIQUE: Thoracic spine, 2 views. FINDINGS: Thoracic vertebral bodies are normal in height and alignment. There are no acute or destru ctive bony processes see. No paraspinal masses are identified. Multilevel endplate remodeling. No disc space narrowing. IMPRESSION: Thoracic spine degenerative changes without acute osseous abnormality.
--- NOTE | 2024-02-23 20:38 | RAD REPORT ---
EXAM DESCRIPTION: CT - CTHCSPWOC - 02/23/2024 7:41 pm CLINICAL HISTORY: PAIN COMPARISON: No comparisons TECHNIQUE: Axial thin cut noncontrast CT images of the head were obtained. Axial thin cut noncontrast CT images of the cervical spine were obtained. Multiplanar reformatted images were generated and reviewed. All CT scans are performed using dose optimization technique as appropriate and may include automated exposure control or mA/KV adjustment according to patient size. FINDINGS: CT HEAD WITHOUT CONTRAST: No acute hemorrhage, hydrocephalus or extra-axial collection is identified.No areas of brain edema or midline shift. The paranasal sinuses and mastoids are clear.The calvarium is intact. CT CERVICAL SPINE WITHOUT CONTRAST: No fracture or subluxation. Straightening of normal cervical lordosis which may be positional or seco ndary to muscle spasm. Mild multilevel degenerative changes with disc height loss and Schmorl's node formation at C6-7. No prevertebral soft tissues swelling is identified. IMPRESSION: No acute traumatic intracranial or cervical spine findings.
--- NOTE | 2024-02-23 21:00 | ER ---
Nurse's Notes [facility] Name: Magui Cotton Age: 58 yrs Sex: Female : 1965 Arrival Date: 02/23/2024 Time: 18:31 Bed 14 Private MD: Diagnosis: Fall on same level, unspecified;Pain in left shoulder;Unspecified injury of head, initial encounter;Pain in thoracic spine;Cervicalgia Presentation: 02/22 18:51 Chief complaint: Patient states: pt slipped and fell onto her left side. Coronavirus as6 screen: At this time, the client does not indicate any symptoms associated with coronavirus-19. Ebola Screen: No symptoms or risks identified at this time. Initial Sepsis Screen: Does the patient meet any 2 criteria? No. Patient's initial sepsis screen is negative. Does the patient have a suspected source of infection? No. Patient's initial sepsis screen is negative. Risk Assessment: Do you want to hurt yourself or someone else? Patient reports no desire to harm self or others. Onset of symptoms was February 23, 2024. 18:51 Method Of Arrival: Wheelchair as6 18:51 Acuity: THERESE 4 as6 Historical: - Allergies: 18:53 metronidazole; as6 18:53 Mustard; as6 - PMHx: 18:53 None; as6 - PSHx: 18:53 shoulder; knee; Cholecystectomy; Total abdominal hysterectomy; as6 - Immunization history:: Adult Immunizations up to date. - Infectious Disease History:: Denies. - Social history:: Smoking status: Patient denies any tobacco usage or history of. Screenin:24 [facility] ED Fall Risk Assessment (Adult) History of falling in the last 3 months, pc2 including since admission Yes- single mechanical fall (1 pt) Confusion or Disorientation No (0 pts) Intoxicated or Sedated No (0 pts) Impaired Gait No (0 pts) Mobility Assist Device Used No (0 pt) Altered Elimination No (0 pt) Score/Fall Risk Level 0 - 2 = Low Risk Oriented to surroundings, Maintained a safe environment, Educated pt \T\ family on fall prevention, incl call for assistance when getting out of bed, Hourly rounding (assess needs \T\ fall precautionary measures) done. Abuse screen: Denies threats or abuse. Denies injuries from another. Nutritional screening: No deficits noted. Tuberculosis screening: No symptoms or risk factors identified. Assessment: 19:17 General: Appears in no apparent distress. obese, well groomed, well nourished, Behavior pc2 is calm, cooperative, appropriate for age. Pain: Complains of pain in left side of head and neck, left shoulder, left upper back Pain currently is 9 out of 10 on a pain scale. Quality of pain is described as aching, throbbing, Pain began 30 min ago. Aggravated by repositioning, Noted to be grimacing. Neuro: Sharif Agitation-Sedation Scale (RASS): 0 - Alert and Calm Level of Consciousness is awake, alert, obeys commands, Oriented to person, place, time, situation, Appropriate for age Gm Video are equal bilaterally Moves all extremities. Gait is steady, Speech is normal, Facial symmetry appears normal, Pupils are PERRLA, Intact Reports headache in left. Cardiovascular: Capillary refill < 3 seconds Patient's skin is warm and dry. Respiratory: Airway is patent Respiratory effort is even, unlabored, Respiratory pattern is regular, symmetrical. GI: No signs and/or symptoms were reported involving the gastrointestinal system. : No signs and/or symptoms were reported regarding the genitourinary system. EENT: No signs and/or symptoms were reported regarding the EENT system. Derm: No signs and/or symptoms reported regarding the dermatologic system. Musculoskeletal: Circulation, motion, and sensation intact. Capillary refill < 3 seconds, Range of motion: intact in all extremities, torn rotator cuff repair 2 years ago. Wanted to be sure she hadn't re-injured. 20:00 Reassessment: Patient appears in no apparent distress at this time. Patient and/or pc2 family updated on plan of care and expected duration. Pain level reassessed. Respiratory: Airway is patent Respiratory effort is even, unlabored, Respiratory pattern is regular, symmetrical. 21:00 Reassessment: Patient and/or family updated on plan of care and expected duration. Pain pc2 level reassessed. Patient is alert, oriented x 3, equal unlabored respirations, skin warm/dry/pink. Patient states feeling better. 21:00 Pain: Pain level that patient reports is acceptable is 3 out of 10 on a pain scale. pc2 Vital Signs: 18:51 Pulse 73; Resp 18; Temp 97.3; Pulse Ox 98% ; Weight 136.08 kg; Height 5 ft. 3 in. ; as6 Pain 9/10; 18:54 BP 137 / 78; as6 19:22 BP 137 / 75; Pulse 75; Resp 18; Temp 97.6; Pulse Ox 99% on R/A; Pain 9/10; pc2 21:19 BP 114 / 66; Pulse 71; Resp 16; Pulse Ox 98% ; as6 18:51 Body Mass Index 53.14 (136.08 kg, 160.02 cm) as6 18:51 Pain Scale: Adult as6 19:22 Pain Scale: Adult pc2 ED Course: 18:36 Patient arrived in ED. mg5 18:53 Triage completed. as6 18:53 Arm band placed on. as6 18:55 Alethea Mancilla FNP-C is PHCP. kb 18:55 Jese Jay MD is Attending Physician. kb 19:10 Narda rodarte, RN is Primary Nurse. pc2 19:25 Patient has correct armband on for positive identification. Fall risk band placed. Bed pc2 in low position. Call light in reach. Side rails up X2. Adult w/ patient. Provided Education on: plan of care. 19:36 Shoulder Left (2 View) XRAY In Process Unspecified. EDMS 19:36 XRAY Thoracic Spine (Ap/lat) In Process Unspecified. EDMS 19:39 CT Head C Spine In Process Unspecified. EDMS 21:06 No provider procedures requiring assistance completed. pc2 21:19 Patient did not have IV access during this emergency room visit. as6 Administered Medications: 19:50 Drug: Hydrocodone-Acetaminophen PO (7.5 mg-325 mg) 1 tabs PO once Route: PO; pc2 20:20 Follow up: Response: No adverse reaction; Marked relief of symptoms; Pain is decreased; pc2 RASS: Alert and Calm (0) 19:50 Drug: Ibuprofen PO 800 mg PO once Route: PO; pc2 20:20 Follow up: Response: No adverse reaction; Marked relief of symptoms; Pain is decreased; pc2 RASS: Alert and Calm (0) Medication: 19:26 VIS not applicable for this client. pc2 Outcome: 20:59 Discharge ordered by . kb 21:07 Discharged to home via wheelchair, with family, pc2 21:07 Condition: stable 21:19 Discharge instructions given to patient, family, Instructed on discharge instructions, as6 follow up and referral plans. medication usage, Demonstrated understanding of instructions, follow-up care, medications, Prescriptions given X 2, 21:19 Patient left the ED. as6 Signatures: Dispatcher [employer] EDAlethea Sierra FNP-C FNP-Ckb Slawson, Ashby, RN RN as6 Ivonne Morin mg5 Narda rodarte, RN RN pc2 Corrections: (The following items were deleted from the chart) 21:18 19:17 Respiratory: Airway is patent is compromised Respiratory effort is even, pc2 unlabored, Respiratory pattern is regular, symmetrical, pc2
--- NOTE | 2024-02-23 21:00 | EDPHYS ---
Physician Documentation [facility] Name: Magui Cotton Age: 58 yrs Sex: Female : 1965 Arrival Date: 02/23/2024 Time: 18:31 Bed 14 Private MD: ED Physician Jese Jay HPI: 02/22 21:50 This 58 yrs old Female presents to ER via Wheelchair with complaints of Fall kb Injury. 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 Denies loc. Daughter states pt has been acting appropriately. Pt denies hip, pelvis, leg pain. Has been ambulatory since fall. . Historical: - Allergies: 18:53 metronidazole; as6 18:53 Mustard; as6 - PMHx: 18:53 None; as6 - PSHx: 18:53 shoulder; knee; Cholecystectomy; Total abdominal hysterectomy; as6 - Immunization history:: Adult Immunizations up to date. - Infectious Disease History:: Denies. - Social history:: Smoking status: Patient denies any tobacco usage or history of. ROS: 21:48 Constitutional: As per HPI kb Exam: 21:48 Constitutional: This is a well developed, well nourished patient who is awake, alert, kb and in no acute distress. Head/Face: Normocephalic, atraumatic. ENT: Moist Mucous membranes Cardiovascular: Regular rate Respiratory: Respirations even and unlabored. No increased work of breathing. Talking in full sentences Abdomen/GI: Soft, non-tender. No distention Skin: Warm, dry with normal turgor. Normal color. Neuro: Awake and alert, GCS 15, oriented to person, place, time, and situation. Moves all extremities. Normal gait. 21:48 Neck: C-spine: vertebral tenderness, 21:48 Back: vertebral tenderness, is appreciated at T1, T2, T3, T4, T5, T6 and T7, 21:48 Musculoskeletal/extremity: Extremities: grossly normal except: noted in the anterior aspect of right shoulder and posterior aspect of right shoulder: decreased ROM, pain, tenderness, ROM: limited active range of motion due to pain, Circulation is intact in all extremities. Sensation intact. Weight bearing: able to fully bear weight, Vital Signs: 18:51 Pulse 73; Resp 18; Temp 97.3; Pulse Ox 98% ; Weight 136.08 kg; Height 5 ft. 3 in. ; as6 Pain 9/10; 18:54 BP 137 / 78; as6 19:22 BP 137 / 75; Pulse 75; Resp 18; Temp 97.6; Pulse Ox 99% on R/A; Pain 9/10; pc2 21:19 BP 114 / 66; Pulse 71; Resp 16; Pulse Ox 98% ; as6 18:51 Body Mass Index 53.14 (136.08 kg, 160.02 cm) as6 18:51 Pain Scale: Adult as6 19:22 Pain Scale: Adult pc2 MDM: 18:55 Patient medically screened. kb 21:49 Differential diagnosis: closed head injury, contusion, fracture, sprain, strain. Data kb reviewed: vital signs, nurses notes. Historians other than the Patient: Daughter/Son: daughter. Counseling: I had a detailed discussion with the patient and/or guardian regarding the historical points, exam findings, and any diagnostic results supporting the discharge/admit diagnosis, radiology results, the need for outpatient follow up, a family practitioner, to return to the emergency department if symptoms worsen or persist or if there are any questions or concerns that arise at home. 02/22 19:15 Order name: CT Head C Spine; Complete Time: 20:40 kb 02/22 19:15 Order name: Shoulder Left (2 View) XRAY; Complete Time: 20:21 kb 02/22 19:15 Order name: XRAY Thoracic Spine (Ap/lat); Complete Time: 20:26 kb Administered Medications: 19:50 Drug: Hydrocodone-Acetaminophen PO (7.5 mg-325 mg) 1 tabs PO once Route: PO; pc2 20:20 Follow up: Response: No adverse reaction; Marked relief of symptoms; Pain is decreased; pc2 RASS: Alert and Calm (0) 19:50 Drug: Ibuprofen PO 800 mg PO once Route: PO; pc2 20:20 Follow up: Response: No adverse reaction; Marked relief of symptoms; Pain is decreased; pc2 RASS: Alert and Calm (0) Disposition Summary: 02/23/24 20:59 Discharge Ordered Notes: Location: Home kb Condition: Stable kb Diagnosis - Fall on same level, unspecified kb - Pain in left shoulder kb - Unspecified injury of head, initial encounter kb - Pain in thoracic spine kb - Cervicalgia kb Followup: kb - With: Emergency Department - When: As needed - Reason: Worsening of condition Followup: kb - With: Private Physician - When: 2 - 3 days - Reason: Recheck today's complaints, Continuance of care, Re-evaluation by your physician Discharge Instructions: - Discharge Summary Sheet kb - Musculoskeletal Pain kb - Head Injury, Adult, [id number] kb Forms: - Medication Reconciliation Form kb - Antibiotic Education kb - Prescription Opioid Use kb - Patient Portal Instructions kb - Leadership Thank You Letter kb Prescriptions: - Diclofenac Sodium 75 mg Oral tablet, delayed release (enteric coated) - take 1 tablet ORAL route 2 times per day As needed; 30 tablet; Refills: 0, kb Product Selection Permitted - orphenadrine citrate 100 mg Oral Tablet Sustained Release - take 1 tablet ORAL route 2 times per day As needed; 20 tablet; Refills: 0, kb Product Selection Permitted Signatures: Dispatcher [employer] Alethea Turner, SHE-C DIRECT MAIL MARKETER-Matti Brown, RN RN as6 Narda rodarte, RN RN pc2
[2024-02-23 21:47] VITALS: BP 114/66; TEMP 97.6; O2SAT 98
== END 2024-02-23 21:19 | disposition home or self-care (01) ==
LOC: ER 18:31
DX: M25.512 Pain in left shoulder (principal); S09.90XA Unspecified injury of head, initial encounter; M54.6 Pain in thoracic spine; M54.2 Cervicalgia; W18.30XA Fall on same level, unspecified, initial encounter
CPT/HCPCS: 70450; 72070; 72125; 99283

== ENCOUNTER 2024-03-18 15:07 | Emergency (ER) | payer SELFPAY ==
--- OUTSIDE RECORDS SUMMARY | 2024-03-18 15:10 | XMS REPORT | Continuity of Care Document ---
Author Name Unknown Address [address] [facility] [place] [address] [facility] thconnect Address [address] [facility] [address] [place] [address] Care Team Providers Care Press Assistant And Feeder Name Role Phone Flores Vargas Primary Care Physician Un available Dedra Amaro Attending Clinician Unavailable GALLO KAUR Attending Clinician Unavailable Gallo Kaur MD Attending Clinician [phone] Steve Payne DO Attending Clinician Doctor Unassigned, [place] Attending Clinician [facility] nav[facility], Adc Fam Pob I Attending Clinician Unavailab Jakub Vargas Attending Clinician JAKUB CHRISTIANSON Attending Clinician Unavailabl Delicia Carrillo Attending Clinician + GALLO KAUR Admitting Clinician Unavailable Payers Payer Name Policy Type Policy Number Effective Date Expirati on Date Source [facility] [id number] 2014 00:00:00 Problems Condition Name Condition Details Condition Category Status Onset Date Resolution Date Last Treatment Date Treating Clinician Comments Source Colon cancer screening Colon cancer screening Disease Active 10-12 00:00: 00 Overview: Formattin g of this note might be different from the original. Added automatic ally from request for surgery [id number] [facility] UTI (urinary tract infection) UTI (urinary tract infection) Disease Active 09-27 00:00: 00 [facility] Well woman exam Well woman exam Disease Active 09-24 00:00: 00 [facility] Menopausal state Menopausal state Disease Active 09-24 00:00: 00 [facility] Morbid obesity Morbid obesity Disease Active 05-23 00:00: 00 [facility] BMI 45.0-49.9, adult BMI 45.0-49.9, adult Disease Active 05-23 00:00: 00 [facility] History of tobacco abuse History of tobacco abuse Disease Active 04-28 00:00: 00 [facility] General counseling and advice for contracept nj management General counseling and advice for contracept nj management Disease Active 04-28 00:00: 00 Overview: Formattin g of this note might be different from the original. 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 Essure procedure [facility] Dysfunctio nal uterine bleeding Dysfunctio nal uterine bleeding Disease Active 01-25 00:00: 00 [facility] Metrorrhag ia Metrorrhag ia Disease Active 01-09 00:00: 00 [facility] Generalize d anxiety disorder Generalize d anxiety disorder Disease Active 01-19 00:00: 00 [facility] Nausea Nausea Problem Active [facility] Urinary tract infection without hematuria, site unspecifie d Urinary tract infection without hematuria, site unspecifie d Problem Active [facility] Abdominal pain, unspecifie d abdominal location Abdominal pain, unspecifie d abdominal location Problem Active [facility] Elevated BP without diagnosis of hypertensi on Elevated BP without diagnosis of hypertensi on Problem Active [facility] Trichomona s infection Trichomona s infection Problem Active [facility] Anxiety Anxiety Problem Active [facility] Rash and nonspecifi c skin eruption Rash and nonspecifi c skin eruption Problem Active [facility] Allergic reaction, initial encounter Allergic reaction, initial encounter Problem Active [facility] Anxiety and depression Anxiety and depression Problem Active [facility] Pain in right knee Pain in right knee Problem Active [facility] Allergic rhinitis Allergic rhinitis Problem Active [facility] Other chronic pain Other chronic pain Problem Active [facility] High blood pressure High blood pressure Problem Active [facility] Screening mammogram, encounter for Screening mammogram, encounter for Diagnosis Active [facility] Well adult exam Well adult exam Diagnosis Active [facility] Allergies, Adverse Reactions, Alerts Allergy Name Allergy Type Status Severity Reaction(s) Onset Date Inactive Date Treating Clinician Comments Source Metronid azole Propensi ty to adverse reaction s Active Hives 04-03 00:00: 00 Difficult y breathing [facility] Mustard Propensi ty to adverse reaction s Active Hives 04-03 00:00: 00 Breathing difficult y [facility] METRONID AZOLE DRUG INGREDI Active Hives 04-03 00:00: 00 [facility] MUSTARD DRUG INGREDI Active Hives 04-03 00:00: 00 [facility] mustard Adverse Reaction Active Lips swell, SOB, and redness [facility] Metronid azole Adverse Reaction Active SOB, redness, neck swelling,; this was 10-11 years ago [facility] Social History Social Habit Start Date Stop Date Quantity Comments Source [facility] Exposure to SARS-CoV-2 (event) 2022-11-03 00:00:00 2022-11-13 12:29:00 Yes [facility] History of Social function 2020-04-16 00:00:00 2020-04-16 00:00:00 [facility] Alcohol intake 2019-10-12 00:00:00 2019-10-12 00:00:00 Current drinker of alcohol (finding) [facility] Tobacco use and exposure 2019-09-24 00:00:00 2019-09-24 00:00:00 Smokeless tobacco non-user [facility] History of tobacco use 2018-09-24 00:00:00 Cigarette Smoker [facility] Alcohol Comment 2018-05-23 00:00:00 2018-05-23 00:00:00 socially [facility] Sex Assigned At 1965 00:00:00 1965 00:00:00 [facility] Smoking Status Start Date Stop Date Source Ex-smoker 2019-09-24 00:00:00 2019-09-24 [facility] Ordered Medication Name Filled Medication Name Start Date Stop Date Current Medication? Ordering Clinician Indication Dosage Frequency Signature (SIG) Comments Components Source NaCl 0.9% (NS) bolus infusion 500 mL 11-13 20:30: 00 11-13 20:47 :00 No 500mL at 999 mL/hr, 500 mL, IV Piggyback, ONCE, 1 dose, On 11/13/22 at 1430, STAT [facility] iopamidol (ISOVUE 370-500 mL) injection 100 mL 11-13 19:15: 00 11-13 19:15 :00 No [id number] 100mL 100 mL, Intravenou s, ONCE, 1 dose, On 11/13/22 at 1315, Routine [facility] BusPIRone HCl BusPIRone HCl 11-12 00:00: 00 Yes Dedra Millender 1 tablet as needed for anxiety [facility] peg-electro lyte soln 236-22.74-6 .74 -5.86 gram solution 10-12 00:00: 00 Yes [id number] Take as directed before colonoscop y [facility] Nitrofurant oin&Nit. Macrocryst (MACROBID) 100 mg capsule 09-27 00:00: 00 Yes [id number] 100mg Take 1 capsule by mouth 2 (two) times daily. [facility] tinidazole 250 mg tablet 06-07 00:00: 00 Yes 2000mg Take 8 tablets by mouth daily with breakfast. [facility] Nitrofurant oin Monohyd Macro Nitrofurant oin Monohyd Macro Yes Dedra Millender 1 capsule with food [facility] Ondansetron Ondansetron Yes Dedra Millender 1 tablet on the tongue and allow to dissolve as needed [facility] Vital Signs Vital Name Observation Time Observation Value Comments S sowmya Systolic blood pressure 2022-11-13 20:30:00 133 mm[Hg] [facility] Diastolic blood pressure 2022-11-13 20:30:00 67 mm[Hg] [facility] Heart rate 2022-11-13 20:30:00 67 /min [facility] Respiratory rate 2022-11-13 20:30:00 27 /min [facility] Oxygen saturation in Arterial blood by Pulse oximetry 2022-11-13 20:30:00 99 /min [facility] acute hospital Body temperature 2022-11-13 17:46:00 37.11 Abena [facility] Body weight 2022-11-13 17:46:00 115.214 kg [facility] BMI 2022-11-13 17:46:00 44.99 kg/m2 [facility] Procedures Procedure Date / Time Performed Performing Clinician Source EKG-12 LEAD 2022-11-13 20:11:45 Gallo Kaur [facility] URINALYSIS 2022-11-13 19:14:00 Gallo Kaur [facility] XR CHEST 1 VW 2022-11-13 18:27:40 Gallo Kaur [facility] CT ANGIOGRAM HEAD 2022-11-13 18:23:09 Gallo Kaur [facility] CT ANGIOGRAM NECK 2022-11-13 18:23:09 Gallo Kaur [facility] CT HEAD WO CONTRAST 2022-11-13 18:20:33 Gallo Kaur [facility] CK (CREATINE KINASE) + MB 2022-11-13 18:02:00 Gallo Kaur [facility] LIPASE 2022-11-13 18:02:00 Gallo Kaur [facility] TROPONIN I 2022-11-13 18:02:00 Gallo Kaur [facility] THYROID STIMULATING HORMONE 2022-11-13 18:02:00 Gallo Kaur [facility] COMP. METABOLIC PANEL ([id number]) 2022-11-13 18:02:00 Gallo Kaur [facility] CBC WITH DIFF 2022-11-13 18:02:00 Gallo Kaur [facility] POCT GLUCOSE (AUTOMATED) 2022-11-13 17:54:00 Emory Kaur [facility] BI SCREENING TOMOSYNTHESIS BILATERAL 2019-09-27 15:34:45 Delicia Encinas [facility] Encounters Start Date/Time End Date/Time Encounter Type Admission Type Attending [facility] Care Facility Care Department Encounter ID Source 2021-10-07 11:33:36 Outpatient Dedra Amaro [facility] [id number] [facility] 2021-10-07 11:30:35 Outpatient Dedra Amaro [facility] [id number] [facility] 2021-10-07 11:14:51 Outpatient Dedra Amaro [facility] [id number] [facility] 2021-10-07 11:14:22 Outpatient Dedra Amaro [facility] [id number] [facility] 2022-11-13 11:48:00 2022-11-13 14:51:00 Emergency X GALLO KAUR [facility] ERT [id number] [facility] 2022-11-13 11:48:00 2022-11-13 14:51:00 Emergency Gallo Kaur [facility] [id number] 350.1.13.10 4.2.7.2.686 [id number] [facility] 2020-11-25 00:00:00 2020-11-25 00:00:00 Patient Outreach Elmer Steve Luis [facility] [id number] 350.1.13.10 4.2.7.2.686 [id number] [facility] 2020-05-22 10:20:00 2020-05-22 10:20:00 Outpatient [facility] [id number] [facility] 2020-04-09 09:40:00 2020-04-09 09:40:00 Outpatient [facility] [id number] [facility] 2020-03-26 00:00:00 2020-03-26 00:00:00 Patient Secure Msg Doctor Unassigned, [place] [facility] 1.840.114 350.1.13.10 4.2.7.2.686 [id number] [facility] 2020-03-24 09:11:29 2020-03-24 09:31:29 Laboratory Only Lab, [facility] Office [address] 1.840.114 350.1.13.10 4.2.7.2.686 [id number] 2020-03-24 09:11:29 2020-03-24 09:31:29 Laboratory Only Lab, [facility] I Jakub Christianson [facility] Office Building One .840.114 350.1.13.10 4.2.7.2.686 [id number] [facility] 2020-03-24 09:00:00 2020-03-24 09:00:00 Outpatient Deloris MEGHAN JAKUB [facility] [id number] [facility] 2020-03-20 08:19:00 2020-03-20 08:19:00 [facility] [id number] [facility] 2019-11-29 16:45:00 2019-11-29 16:45:00 [facility] [id number] [facility] 2019-11-13 23:34:00 2019-11-13 23:34:00 [facility] [id number] [facility] 2019-11-13 10:15:00 2019-11-13 10:15:00 [facility] Medicine [facility] [id number] [facility] 2019-10-03 00:00:00 2019-10-03 00:00:00 Refill Akinsipe, Delicia C [facility] LINE [employer] [facility] [id number] 350.1.13.10 4.2.7.2.686 [id number] 2019-10-03 00:00:00 2019-10-03 00:00:00 Refill Akinsipe, Delicia C [facility] LINE ASSEM[employer] [facility] 1.2.840.114 350.1.13.10 4.2.7.2.686 [id number] [facility] 2019-09-27 08:45:00 2019-09-27 23:59:00 Hospital Encounter Akinsipe, Delicia C [facility] 1.2.840.114 350.1.13.10 4.2.7.2.686 [id number] 2019-09-27 08:45:00 2019-09-27 23:59:00 Hospital Encounter Akinsipe, Delicia C [facility] 1.2.840.114 350.1.13.10 4.2.7.2.686 [id number] [facility] 2019-09-27 00:00:00 2019-09-27 00:00:00 Telephone Delicia Encinas [facility] LINE [employer] [facility] 1.2.840.114 350.1.13.10 4.2.7.2.686 [id number] 2019-09-27 00:00:00 2019-09-27 00:00:00 Telephone Delicia Encinas [facility] LINE [employer] [facility] 1.2.840.114 350.1.13.10 4.2.7.2.686 [id number] [facility] 2019-09-25 00:00:00 2019-09-25 00:00:00 Telephone Delicia Encinas [facility] LINE [employer] [facility] 1.2.840.114 350.1.13.10 4.2.7.2.686 [id number] [facility] 2019-01-23 13:40:00 2019-01-23 13:40:00 Outpatient [facility] [id number] [facility] 2018-04-06 18:48:00 2018-04-06 18:48:00 Outpatient [facility] [id number] [facility] 2018-04-06 09:00:00 2018-04-06 09:00:00 Outpatient [facility] [id number] [facility] Results Test Description Test Time Test Comments Results Result Co mments Source [facility] [id number] 18:35:56* Test Item Value Reference Range Interpretation Comme nts TROPONIN I (test code = 5088077303) 0.003 ng/mL <=0.034 SHYAM (test code = [...] of biotin. Lab Interpretation (test code = 55935-9) Normal [facility] (CREATINE [facility]INASE) + [id number] 18:32:38* Test Item Value Reference Range Interpretation Comme nts CK (test code = 2997056508) 109 U/L 33-194 CK-MB (test code = 4815575681) 0.83 ng/mL <=3.50 CKMB INDEX (test code = 6313419464) 0.8 % 0.0-2.5 SHYAM (test code = SHYAM) Biotin has been reported to cause a negative bias, interpret results relative to patient's use of biotin. Lab Interpretation (test code = 39697-5) [facility]94607[facility]13 18:24:00* Test Item Value Reference Range Interpretation Comme nts NA (test code = 1156797573) 138 mmol/L 135-145 K (test code = 1586882305) 3.7 mmol/L 3.5-5.0 CL (test code = 8098199588) 106 mmol/L 98-108 CO2 TOTAL (test code = 9719836877) 24 mmol/L 23-31 AGAP (test code = 2075808960) 8 2-16 BUN (test code = 9229364247) 12 mg/dL 7-23 GLUCOSE (test code = 6375584482) 152 mg/dL 70-110 H CREATININE (test code = 0454950331) 0.58 mg/dL 0.50-1.04 TOTAL BILI (test code = 7804758437) 0.5 mg/dL 0.1-1.1 CALCIUM (test code = 5360800277) 8.5 mg/dL 8.6-10.6 L T PROTEIN (test code = 0790426986) 7.2 g/dL 6.3-8.2 ALBUMIN (test code = 5678804980) 4.0 g/dL 3.5-5.0 ALK PHOS (test code = 0262190808) 67 U/L 34-122 ALTv (test code = 1742-6) 35 U/L 5-35 AST(SGOT) (test code = 1159868120) 31 U/L 13-40 eGFR (test code = 0198852302) 107.5 mL/min/1.73m2 SHYAM (test code = SHYAM) [...] imaging tests). Lab Interpretation (test code = 70064-0) Abnormal [facility]2023-[facility]-04 18:23:45* Test Item Value Reference Range Interpretation Comme nts LIPASE (test code = 1325276705) 77 U/L 0-220 Lab Interpretation (test cod e = 95184-7) Normal [facility]CB WITH [id number] 18:11:37* Test Item Value Reference Range Interpretation Comme nts WBC (test code = 6690-2) 7.22 See_Comment [Automated [employer]] The system which generated this result transmitted reference range: 4.30 - 11.10 10*3/?L. The reference range was not used to interpret this result as normal/abnormal. RBC (test code = 789-8) 4.70 See_Comment [Automated [employer]] The system which generated this result transmitted [...] 32.9 g/dL 31.6-35.1 RDW-SD (test code = 44214-0) 42.5 fL 39.0-49.9 RDW-CV (test code = 788-0) 13.9 % 12.0-15.5 PLT (test code = 777-3) 245 See_Comment [Automated [employer]] The system which generated this result transmitted reference range: 166 - 358 10*3/?L. The reference range was not used to interpret this result as normal/abnormal. MPV (test code = 88718-6) 9.6 fL 9.5-12.9 NRBC/100 WBC (test code = 2866763895) 0.0 See_Comment [Automated [employer]] The system which generated this result transmitted reference range: 0.0 - 10.0 /100 WBCs. The reference range was not used to interpret this result as normal/abnormal. NRBC x10^3 (test code = 7978467865) See_Comment [Automated [employer]] The system which generated this result transmitted reference range: 10*3/?L. The reference range was not used to interpret this result as normal/abnormal. GRAN MAT (NEUT) % (test code = 770-8) 51.7 % IMM GRAN % (test code = 7298429128) 0.70 % LYMPH % (test code = 736-9) 39.9 % MONO % (test code = 5905-5) 5.3 % EOS % (test code = 713-8) 1.8 % BASO % (test code = 706-2) 0.6 % GRAN MAT x10^3(ANC) (test code = 9967997635) 3.74 10*3/uL 1.88-7.09 IMM GRAN x10^3 (test code = 5243538216) 0.05 10*3/uL 0.00-0.06 LYMPH x10^3 (test code = 731-0) 2.88 10*3/uL 1.32-3.29 MONO x10^3 (test code = 742-7) 0.38 10*3/uL 0.33-0.92 EOS x10^3 (test code = 711-2) 0.13 10*3/uL 0.03-0.39 BASO x10^3 (test code = 704-7) 0.04 10*3/uL 0.01-0.07 [facility])2022-11-13 17:58:40* Test Item Value Reference Range Interpretation Comme nts POCT GLU (test code = 0576343590) 157 mg/dL 70-110 H Lab Interpretation (test cod e = 29952-5) Abnormal [facility] SCREEN[facility] TOMOSYNTHESIS [id number] 16:10:12Examination:BI SCREENING TOMOSYNTHESIS BILATERAL History:Patient is 54 year old and is seen for: ?Routine. Computer-aided detection (CAD) utilized. Comparisons: 07/18/2018 BI SCREENING TOMOSYNTHESIS BILATERAL, 02/10/2015 DIGITAL MAMMOGRAM, SCREENING, and 03/08/2012 DIGITAL MAMMOGRAM, SCREENING Findings:The breasts have scattered areas of fibroglandular density. BilateralThere are vascular calcifications seen in both breasts. Impression:No signs of malignancy. Recommendation:Annual mammographic follow-up - Bilateral BI-RADS Category: Both [facility]"
[2024-03-18] MEDS ORDERED: MORPHINE 4 MG/ML SYR ONE (16:06)
--- NOTE | 2024-03-18 16:41 | RAD REPORT ---
EXAM DESCRIPTION: Joi Single View03/18/2024 3:59 pm CLINICAL HISTORY: Chest pain COMPARISON: 2019 FINDINGS: The lungs appear clear of acute infiltrate. The heart is borderline enlarged IMPRESSION: No acute abnormalities displayed
--- NOTE | 2024-03-18 16:42 | RAD REPORT ---
EXAM DESCRIPTION: RAD - Shoulder Right 2 View - 03/18/2024 3:58 pm CLINICAL HISTORY: Right shoulder pain FINDINGS: No fracture or dislocation is seen. Moderate narrowing AC joint
--- NOTE | 2024-03-18 17:02 | RAD REPORT ---
EXAM DESCRIPTION: RAD - Knee Right 3 View - 03/18/2024 4:47 pm CLINICAL HISTORY: Right knee pain status post injury FINDINGS: Plate and screws affix an bold tibial fracture No acute fracture or dislocation seen Bony/calcific density anterior upper knee may represent a loose body
--- NOTE | 2024-03-18 17:02 | RAD REPORT ---
EXAM DESCRIPTION: RAD - Knee Left 3 View - 03/18/2024 4:47 pm CLINICAL HISTORY: Left knee pain FINDINGS: No fracture or dislocation is seen.
--- NOTE | 2024-03-18 17:17 | EDPHYS ---
Physician Documentation [facility] Name: Magui Cotton Age: 58 yrs Sex: Female : 1965 Arrival Date: 03/18/2024 Time: 15:07 Bed 10 Private MD: ED Physician Mehdi Augustine HPI: 03/18 16:13 This 58 yrs old Female presents to ER via EMS with complaints of Shoulder ec2 Injury, Fall Injury. 16:13 Patient arrives today for evaluation of right shoulder pain as well as right knee pain. ec2 States that she had a fall and subsequently is having pain in the right shoulder, unable to range it. Denies any LOC, denies any blood thinner use. . Historical: - Allergies: 15:24 metronidazole; tl4 15:24 Mustard; tl4 - Home Meds: 15:24 None [Active]; tl4 - PMHx: 15:24 None; tl4 - PSHx: 15:24 Cholecystectomy; knee; Shoulder; Total abdominal hysterectomy; tl4 - Immunization history:: Adult Immunizations unknown. - Infectious Disease History:: Denies. - Social history:: Smoking status: Patient denies any tobacco usage or history of. ROS: 16:13 Constitutional: as per hpi ec2 Exam: 16:13 Constitutional: GEN: NAD Head: atraumatic Eyes: EOMI Ears: External ears are ec2 normal. CV: regular rate LUNGS: no respiratory distress ABD: non-distended SKIN: no evidence of rashes MSK: TTP to the right shoulder, intact distal neurovascular status, TTP to the right knee, no obvious deformity present. NEURO: moves all extremities equally Vital Signs: 15:17 BP 140 / 80; Pulse 75; Resp 16; Temp 98.4(O); Pulse Ox 99% ; Weight 136.08 kg; Height 5 tl4 ft. 3 in. ; Pain 7/10; 16:00 BP 120 / 70; Pulse 68; Resp 18; Pulse Ox 98% on R/A; tl4 17:00 BP 120 / 68; Pulse 75; Resp 20; Pulse Ox 99% on R/A; tl4 18:00 BP 125 / 86; Pulse 65; Resp 16; Temp 98.3(O); Pulse Ox 100% on R/A; Pain 8/10; tl4 15:17 Body Mass Index 53.14 (136.08 kg, 160.02 cm) tl4 15:17 Pain Scale: Adult tl4 18:00 Pain Scale: Adult tl4 MDM: 15:29 Patient medically screened. ec2 16:13 Data reviewed: vital signs. ED course: Patient arrives today for evaluation for ec2 follow-up with complaints of MSK injuries. Examination remarkable for muscular findings as above. Will obtain radiograph of the shoulder as well as knee. Differential diagnosis include bony fracture, contusion.. 17:15 ED course: Radiographs w/o bony fx, will d/c to home, return precautions given. . ec2 03/18 15:30 Order name: Shoulder Right (2 View) XRAY; Complete Time: 16:54 ec2 03/18 15:30 Order name: CXR XRAY; Complete Time: 16:54 ec2 03/18 16:04 Order name: Knee Right 3 View XRAY; Complete Time: 17:09 ec2 03/18 16:25 Order name: Knee Left 3 View XRAY; Complete Time: 17:09 ec2 03/18 16:01 Order name: Sling; Complete Time: 16:31 ec2 Administered Medications: 16:12 Drug: morphine IVP or IV 4 mg IVP once over 4 mins Route: IVP; Infused Over: 4 mins; tl4 Site: left hand; 18:06 Follow up: Response: No adverse reaction; Pain is decreased tl4 18:01 Drug: Hydrocodone-Acetaminophen PO (7.5 mg-325 mg) 1 tabs PO once; RASS on ADMIN: tl4 Combtv4, Very Agttd3, Agttd2, Rstlss1, AlertClm0, Drwsy-1, Lt Sdtn-2, Mod Sdtn-3, Dp Sdtn-4, UnArsble-5 Route: PO; 18:01 Follow up: Response: No adverse reaction; Medication administered at discharge. tl4 Disposition Summary: 03/18/24 17:16 Discharge Ordered Notes: Location: Home ec2 Condition: Stable ec2 Diagnosis - Pain in right shoulder ec2 - Pain in left knee ec2 - Pain in right knee ec2 Followup: ec2 - With: Antoine Tripp MD - When: - Reason: Recheck today's complaints Discharge Instructions: - Discharge Summary Sheet ec2 - Shoulder Sprain ec2 Forms: - Medication Reconciliation Form ec2 - Antibiotic Education ec2 - Prescription Opioid Use ec2 - Patient Portal Instructions ec2 - Leadership Thank You Letter ec2 Prescriptions: - methocarbamol 500 mg Oral tablet - take 2 tablets ORAL route 4 times per day; 20 tablet; Refills: 0, Product ec2 Selection Permitted Signatures: Dispatcher [employer] EDMS Mehdi Augustine MD MD ec2 Kennedy Andres RN RN tl4 Corrections: (The following items were deleted from the chart) 15:30 15:30 Chest Single View+RAD.RAD.BRZ ordered. EDMS EDMS
--- NOTE | 2024-03-18 17:17 | ER ---
Nurse's Notes [facility] Name: Magui Cotton Age: 58 yrs Sex: Female : 1965 Arrival Date: 03/18/2024 Time: 15:07 Bed 10 Private MD: Diagnosis: Pain in right shoulder;Pain in left knee;Pain in right knee Presentation: 03/18 15:17 Chief complaint: Patient states: Pt states she tripped and fell onto her right shoulder tl4 while walking on her driveway. Pt denies striking head, LOC. Pt c/o severe right shoulder pain with decreased ROM due to pain. Coronavirus screen: At this time, the client does not indicate any symptoms associated with coronavirus-19. Ebola Screen: No symptoms or risks identified at this time. Initial Sepsis Screen: Does the patient meet any 2 criteria? No. Patient's initial sepsis screen is negative. Does the patient have a suspected source of infection? No. Patient's initial sepsis screen is negative. Risk Assessment: Do you want to hurt yourself or someone else? Patient reports no desire to harm self or others. Onset of symptoms was March 18, 2024 at 14:30. 15:17 Method Of Arrival: EMS: [facility] tl4 15:17 Acuity: THERESE 3 tl4 15:32 Care prior to arrival: IV initiated. 22 GA, in the left hand. tl4 15:33 Care prior to arrival: Medication(s) given: 100 mcg Fentanyl IVP. tl4 Triage Assessment: 15:25 General: Appears uncomfortable, Behavior is calm, cooperative. Pain: Complains of pain tl4 in back and right arm. EENT: No signs and/or symptoms were reported regarding the EENT system. Neuro: Level of Consciousness is awake, alert, obeys commands, Oriented to person, place, time, situation, Moves all extremities. Full function Speech is normal. Cardiovascular: Capillary refill < 3 seconds Patient's skin is warm and dry. Respiratory: Airway is patent Respiratory effort is even, unlabored, Respiratory pattern is regular, symmetrical, Breath sounds are clear bilaterally. GI: No signs and/or symptoms were reported involving the gastrointestinal system. : No signs and/or symptoms were reported regarding the genitourinary system. Derm: No signs and/or symptoms reported regarding the dermatologic system. Musculoskeletal: Circulation, motion, and sensation intact. Capillary refill < 3 seconds, Range of motion: limited in right shoulder Reports pain in back and right arm. Injury Description: blunt from fall. Historical: - Allergies: 15:24 metronidazole; tl4 15:24 Mustard; tl4 - Home Meds: 15:24 None [Active]; tl4 - PMHx: 15:24 None; tl4 - PSHx: 15:24 Cholecystectomy; knee; Shoulder; Total abdominal hysterectomy; tl4 - Immunization history:: Adult Immunizations unknown. - Infectious Disease History:: Denies. - Social history:: Smoking status: Patient denies any tobacco usage or history of. Screenin:30 [facility] ED Fall Risk Assessment (Adult) History of falling in the last 3 months, tl4 including since admission Yes- fall prone (multiple falls) (3 pts) Confusion or Disorientation No (0 pts) Intoxicated or Sedated No (0 pts) Impaired Gait No (0 pts) Mobility Assist Device Used No (0 pt) Altered Elimination No (0 pt) Score/Fall Risk Level 3 or more points = High Risk Oriented to surroundings, Maintained a safe environment, Educated pt \T\ family on fall prevention, incl call for assistance when getting out of bed, Assessed \T\ reinforced patient's understanding of fall precautions, Provided non-skid footwear, Hourly rounding (assess needs \T\ fall precautionary measures) done, Used ambulatory aids as needed (educated on \T\ assisted with), Used gait belt as appropriate. Abuse screen: Denies threats or abuse. Denies injuries from another. Nutritional screening: No deficits noted. Tuberculosis screening: No symptoms or risk factors identified. Assessment: 16:07 Reassessment: Patient and/or family updated on plan of care and expected duration. Pain tl4 level reassessed. Patient is alert, oriented x 3, equal unlabored respirations, skin warm/dry/pink. Pt c/o increasing pain in right shoulder and right leg. Dr Augustine aware. Additional orders given for pain medication and xray. Family at bedside. Will continue to monitor. 18:01 Reassessment: delay to discharge due to medication administration. tl4 Vital Signs: 15:17 BP 140 / 80; Pulse 75; Resp 16; Temp 98.4(O); Pulse Ox 99% ; Weight 136.08 kg; Height 5 tl4 ft. 3 in. ; Pain 7/10; 16:00 BP 120 / 70; Pulse 68; Resp 18; Pulse Ox 98% on R/A; tl4 17:00 BP 120 / 68; Pulse 75; Resp 20; Pulse Ox 99% on R/A; tl4 18:00 BP 125 / 86; Pulse 65; Resp 16; Temp 98.3(O); Pulse Ox 100% on R/A; Pain 8/10; tl4 15:17 Body Mass Index 53.14 (136.08 kg, 160.02 cm) tl4 15:17 Pain Scale: Adult tl4 18:00 Pain Scale: Adult tl4 ED Course: 15:16 Patient arrived in ED. tl4 15:24 Triage completed. tl4 15:29 Mehdi Augustine MD is Attending Physician. ec2 15:30 Kennedy Andres, WENDIE is Primary Nurse. tl4 15:30 Arm band placed on left wrist. tl4 15:31 Patient has correct armband on for positive identification. Bed in low position. Call tl4 light in reach. Side rails up X2. Adult w/ patient. Provided Education on: ed process, call casarez. Client placed on continuous cardiac and pulse oximetry monitoring. NIBP monitoring applied. Door closed. Noise minimized. Lights dimmed. Moved to private room. Warm blanket given. Pillow given. 15:31 No provider procedures requiring assistance completed. Maintain EMS IV. Dressing tl4 intact. Good blood return noted. Site clean \T\ dry. Gauge \T\ site: 22g left hand. 15:34 right arm splinted with pillow for support. Wound care: ice pack applied. Patient tl4 tolerated well. 16:00 Shoulder Right (2 View) XRAY In Process Unspecified. EDMS 16:00 CXR XRAY In Process Unspecified. EDMS 16:49 Knee Right 3 View XRAY In Process Unspecified. EDMS 16:49 Knee Left 3 View XRAY In Process Unspecified. EDMS 17:16 Antoine Tripp MD is Referral Physician. ec2 17:40 IV discontinued, intact, bleeding controlled, No redness/swelling at site. Pressure tl4 dressing applied. 17:40 Sling applied to right arm. tl4 Administered Medications: 16:12 Drug: morphine IVP or IV 4 mg IVP once over 4 mins Route: IVP; Infused Over: 4 mins; tl4 Site: left hand; 18:06 Follow up: Response: No adverse reaction; Pain is decreased tl4 18:01 Drug: Hydrocodone-Acetaminophen PO (7.5 mg-325 mg) 1 tabs PO once; RASS on ADMIN: tl4 Combtv4, Very Agttd3, Agttd2, Rstlss1, AlertClm0, Drwsy-1, Lt Sdtn-2, Mod Sdtn-3, Dp Sdtn-4, UnArsble-5 Route: PO; 18:01 Follow up: Response: No adverse reaction; Medication administered at discharge. tl4 Medication: 15:30 VIS not applicable for this client. tl4 Outcome: 17:16 Discharge ordered by . ec2 17:40 Discharged to home via wheelchair, with family, tl4 17:40 Condition: stable 17:40 Discharge instructions given to patient, family, Instructed on discharge instructions, follow up and referral plans. medication usage, Demonstrated understanding of instructions, follow-up care, medications, Prescriptions given X 1, 18:06 Patient left the ED. tl4 Signatures: Dispatcher [employer] EDMehdi Hudson MD MD ec2 Kennedy Andres RN RN tl4
[2024-03-18] MEDS ORDERED: HYDROCODONE/APAP 7.5/325 MG TAB ONE (17:52)
[2024-03-18 18:22] VITALS: BP 125/86; TEMP 98.3; O2SAT 100
== END 2024-03-18 18:06 | disposition home or self-care (01) ==
LOC: ER 15:07
DX: M25.511 Pain in right shoulder (principal); M25.562 Pain in left knee; M25.561 Pain in right knee
CPT/HCPCS: 71045; 96374; 99285